=== PATIENT | male | born 1950 | race Caucasian/White ===

== ENCOUNTER 2018-12-18 14:03 | Inpatient (IN) ==
--- NOTE | 2018-12-18 14:22 | CT Scan Report ---
CT head/brain wo con CT DOSE: 638.56 mGycm HISTORY: Mental status change Confused, speech difficulty TECHNIQUE: Multiaxial CT images of the head were performed without the use of intravenous contrast. A dose lowering technique was utilized adhering to the principles of ALARA. Comparison: None. Findings: Ancef polypoid change left maxillary sinus. Sinuses are otherwise clear. Findings of an acute to subacute infarct left superior temporal lobe medially posterior to the superi or sylvian fissure. This measures 2.5 x 2.8 cm. The calvarium and skull base are intact. The ventricl es and sulci are within normal limits. There is no mass, hematoma, midline shift,. No evidence for ac fabiano intracranial hemorrhage. Impression: 1. Acute/subacute infarct left superior temporal parietal lobe 2. No acute intracranial hemorrhage. 3. Expansile polypoid change superior left maxillary sinus. The above report was generated using voice recognition software. It may contain grammatical, syntax or spelling errors. Electronically signed by: Jaspreet Richardson M.D. 12/18/2018 2:20 PM
--- NOTE | 2018-12-18 14:32 | XRay Report ---
XR chest 1V portable CLINICAL HISTORY: speech difficulty COMPARISON STUDY: No previous studies for comparison. FINDINGS: The bones soft tissues and hemidiaphragms are normal. The cardiomediastinal silhouette is n ormal. The lungs are clear. The pulmonary vasculature is normal. IMPRESSION: Negative chest. The above report was generated using voice recognition software. It may contain grammatical, syntax or spelling errors. Electronically signed by: Jaspreet Richardson M.D. 12/18/2018 2:30 PM
[2018-12-18 14:42] LABS: iSTAT Creatinine 1.3 mg/dl (0.6-1.3); iSTAT Ionized Calcium 1.05 mmol/l (1.12-1.32); iSTAT Potassium 4.5 mEq/L (3.3-5.0)
[2018-12-18 14:50] LABS: Hematocrit (blood only) 42.1 % (42-52); Hemoglobin 15.1 g/dL (14.0-18.0); Mean Corpuscular Hgb Conc 35.9 g/dL (32-36); Mean Corpuscular Volume 86.4 fL (80-100); Mean Platelet Volume 10.1 fL (7.4-10.4); Platelet Count 283 K/uL (130-400); RDW Coefficient of Variation 12.7 % (11.5-14.5); RDW Standard Deviation 40.7 fL (36.4-46.3); Red Blood Count 4.87 M/uL (4.7-6.1); White Blood Count 10.13 K/uL (4.8-10.8)
[2018-12-18 14:52] LABS: Partial Thromboplastin Ratio 0.9
[2018-12-18] MEDS ORDERED: IOVERSOL 100ml IV PRN (14:54)
--- NOTE | 2018-12-18 15:04 | CT Scan Report ---
CT angio neck with con HISTORY: Stroke code stroke TECHNIQUE: Multiaxial CT angiography of the neck was performed IV contrast: None. All measurem ents were calculated based on NASCET criteria. Maximum intensity projection images were also obtaine d. A dose lowering technique was utilized adhering to the principles of ALARA. COMPARISON STUDY: None. FINDINGS: The aortic arch and proximal great vessels are widely patent. The right carotid system debra ws moderate plaque dimension of the carotid bifurcation but no major stenosis. There is plaque formation at the left carotid bifurcation with evidence for 95% plus stenosis left in ternal as well as left external carotid arteries. More distal aspect of the vessels appear unremarkab le. Vertebral basilar system is unremarkable. IMPRESSION: 1. 95% plus stenosis/critical stenosis of the left internal and left external carotid arteries. 2. No significant stenosis of the right carotid system or vertebral basilar system. The above report was generated using voice recognition software. It may contain grammatical, syntax or spelling errors. Electronically signed by: Jaspreet Richardson M.D. 12/18/2018 3:02 PM
--- NOTE | 2018-12-18 15:05 | CT Scan Report ---
CTA ANGIOGRAPHY OF THE HEAD CLINICAL HISTORY: Stroke alert. COMPARISON STUDY: Head CT performed earlier today. TECHNIQUE: Helical axial images of the head were obtained following uneventful intravenous administr ation of 120 cc of Optiray 320. Automated exposure control was utilized for the study. A dose lower ing technique was utilized adhering to the principles of ALARA. FINDINGS: No acute intracranial hemorrhage, midline shift or mass effect is noted. Note is made of a 3 cm hypodensity with loss of luna-white differentiation within the left frontoparietal region. Ventr icular system is normal. The basilar cisterns are patent. There are no extra-axial collections. Visua lized portions of the left maxillary sinus are opacified with wall thickening. The bilateral M1, M2, A1 and A2 segments are patent. There is mild plaque. No severe stenoses are identified. No abrupt cut off is identified. Posterior circulation is also intact. IMPRESSION: 1. 3 cm hypodensity with loss of luna-white differentiation within the left frontoparietal region whi ch suggests an acute to subacute infarct. No hemorrhage. No mass effect. 2. Mild atherosclerotic plaque within the intracranial circulation. No severe stenosis or abrupt vess el cut off. No intracranial aneurysm. Electronically signed by: Zan Garcia M.D. 12/18/2018 3:04 PM
[2018-12-18 15:10] LABS: Albumin Globulin Ratio 0.8 (0.9-2); Albumin Level 3.9 gm/dl (3.4-5.0); BUN Creatinine Ratio 17.9 (10-20); Bilirubin,Total 0.6 mg/dl (0.2-1); Calcium 9.5 mg/dl (8.5-10.1); Creatinine Clr Calc Pharmacy 42.8 ml/min; Est GFR (African American) 53.9; Est GFR (Non-African American) 46.5; Globulin 4.6 gm/dl (2.5-4.0); Magnesium 2.1 mg/dl (1.8-2.4); Potassium 4.3 mmol/L (3.5-5.1); Total Protein 8.5 gm/dl (6.4-8.2)
[2018-12-18] MEDS ORDERED: CLOPIDOGREL BISULFATE 300 MG TAB PO STA (15:17)
[2018-12-18] MEDS ORDERED: ASPIRIN CHEW 324 MG PO STA (15:17)
[2018-12-18 15:27] LABS: Beta-Hydroxybutyrate 21.91 mg/dl (0.2-2.81)
--- NOTE | 2018-12-18 16:46 | History & Physical Report ---
Date of Service December 18, 2018 Assessment & Plan (1) CVA (cerebral vascular accident): (2) Carotid stenosis: -Admit to telemetry -Patient presenting from home with reports of expressive aphasia -In the ED, head CTA showing acute/subacute left frontoparietal infarction -Neck CTA showing 95% stenosis of the left internal and external carotid arteries -TPA not indicated due to unknown last well time (patient woke up with symptoms) -Patient received full dose aspirin and clopidogrel 300 mg in the ED, will continue with aspirin 81 mg and clopidogrel 75 mg daily -Brain MRI -Resting echo -Vascular surgery consult re: carotid stenosis -Lipid panel with a.m. labs -Patient also found to be newly diagnosed diabetic (3) Newly diagnosed diabetes: -Glucose on arrival 378 -No reported prior history of diabetes -will place patient on insulin drip to determine needs going forward -Check Hgb A1c (4) Tachycardia: -Possible physiologic response to acute CVA -? Due to dehydration; will give 1 L IVF bolus and reevaluate -Would like to try to avoid giving medications to lower heart rate to allow for permissive hypertension in the setting of acute CVA (5) Abnormal renal function: -Creatinine noted to be 1.5, unknown baseline -Hydrate, follow renal functions (6) DVT prophylaxis: -SCDs, ambulate History of Present Illness Chief Complaint: Difficulty speaking Primary Care Provider: NO PCP 68-year-old male who presents the ED with difficulty speaking. Patient has not been seen by a physician in several years. Patient reports that he and his were at a [place] in [place] yesterday and did not arrive home until 5:00 this morning. Patient woke up around noon and at that time, he was noted to have difficulty speaking and some mild confusion. is the bedside who provides history. She reports that he knew what he wanted to say however was unable to get the words out. Patient was then brought to the ED for further evaluation. There is no associated unilateral numbness or tingling, slurred speech, facial droop. Patient denies headache and blurred vision. Over the past several months, patient has had episodes where he " collapses". Reports this was not due to loss of consciousness however his legs are simply give out from under him. Patient denies lightheadedness, dizziness, diaphoresis, syncopal events. He denies abdominal pain, nausea, vomiting, diarrhea. No other recent illnesses, fevers, chills. He denies any urinary symptoms. Patient reports increased thirst and urination however reports this is been going on for " some time". Stroke alert was called when patient arrived to the ED however he was not felt to be a candidate for TPA secondary to timing. Head CTA shows an acute/subacute infarct in the left frontoparietal region. Neck CTA shows 95% stenosis within the left internal and external carotid arteries. Patient was given a full dose aspirin and clopidogrel 300 mg as per recommendations from [place] stroke alert. Labs also show blood sugar of 378 (no history of diabetes). Allergies Allergy/AdvReac Type Severity Reaction Status Date / Time No Known Allergies Allergy Verified 12/18/18 14:58 Home Medications Home Medications Medication Instructions Recorded Confirmed Type aspirin 325 mg PO DAILY 12/18/18 12/18/18 History multivitamin 1 tab PO DAILY 12/18/18 12/18/18 History naproxen sodium 220 - 440 mg PO DIRECTED PRN 12/18/18 12/18/18 History Past Med/Surg History Medical History Wrist fracture (Chronic) s/p repair Family History Father Abdominal aortic aneurysm Mother Stroke Fatal at age 88 Brother Diabetes Social History Preferred Language: Romanian Communication Ability: Effective Print[employer]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 Beliefs That Will Affect Care: None Current Living Situation: Spouse Other Information That Helps Us Care for You: No Feels Safe at Home: Yes Safety Concerns: Feels Safe At This Time Smoking Status: Never smoker Do You Dip or Chew Tobacco: No Second Hand Exposure: No Tobacco Cessation Education Requested by Patient: No Hx Alcohol Use: Yes Hx Substance Use: No Review of Systems Review of Systems: ROS per HPI, all other systems reviewed and negative Physical Exam Constitutional: WD/WN, vitals as above Eyes: PERRL, conjunctivae normal, anicteric sclerae ENMT: Ears: no external ear abnormality Nose: no external nose abnormality Mouth: + edentulous Respiratory: normal respiratory effort, lungs clear to auscultation Cardiovascular: Rate/Rhythm: regular rhythm and + tachycardic Vessels: + carotid bruit (Left) and normal peripheral pulses Extremities: no edema Gastrointestinal (Abdomen): normal bowel sounds, soft, nontender, no hepatosplenomegaly Musculoskeletal: no cyanosis or clubbing, extremities motor strength 5/5 Skin: no rashes, warm and dry Neurologic: moves all extremities and awake; no focal motor deficits Speech / Cognition: + expressive aphasia Motor/Sensory: no pronator drift Cranial Nerves: PERRL, normal accommodation, EOM intact bilaterally and normal facial strength Coordination: normal [id number] test and normal [id number] test Psychiatric: A+Ox3, euthymic affect Results & Data Vital Signs (Past 12 Hours) Vital Signs Temp Pulse Resp BP Pulse Ox 12/18/18 16:15 110 H 16 97 12/18/18 16:01 117 H 18 148/88 H 96 12/18/18 16:00 119 H 22 98 12/18/18 15:47 120 H 20 98 12/18/18 15:46 116 H 29 H 153/109 H 94 12/18/18 15:45 109 H 18 98 12/18/18 15:31 108 H 14 142/106 H 97 12/18/18 15:30 108 H 17 97 12/18/18 15:17 110 H 17 97 12/18/18 15:16 109 H 16 161/104 H 99 12/18/18 15:15 109 H 15 99 12/18/18 15:01 110 H 20 170/91 H 98 12/18/18 15:00 112 H 21 98 12/18/18 14:54 115 H 21 170/95 H 99 12/18/18 14:52 116 H 16 12/18/18 14:32 121 H 22 97 12/18/18 14:31 122 H 19 201/115 H 98 12/18/18 14:28 122 H 21 190/115 H 98 12/18/18 14:23 120 H 18 199/115 H 97 12/18/18 14:22 36.9 C 12/18/18 14:21 124 H 20 212/120 H 98 12/18/18 14:11 123 H 98 12/18/18 14:07 36.9 C 119 H 17 138/81 98 Laboratory Results Laboratory Last Values WBC 10.13 K/uL (4.8-10.8) 12/18/18 14:18 RBC 4.87 M/uL (4.7-6.1) 12/18/18 14:18 Hgb 15.1 g/dL (14.0-18.0) 12/18/18 14:18 POC Hgb 16.0 g/dl (14.0-18.0) 12/18/18 14:28 Hct 42.1 % (42-52) 12/18/18 14:18 POC Hct 47 % (42-52) 12/18/18 14:28 MCV 86.4 fL (80-100) 12/18/18 14:18 MCH 31.0 pg (25-34) 12/18/18 14:18 MCHC 35.9 g/dL (32-36) 12/18/18 14:18 RDW Std Deviation 40.7 fL (36.4-46.3) 12/18/18 14:18 RDW Coeff of Nazanin 12.7 % (11.5-14.5) 12/18/18 14:18 Plt Count 283 K/uL (130-400) 12/18/18 14:18 MPV 10.1 fL (7.4-10.4) 12/18/18 14:18 PT 10.0 Seconds (9.0-12.0) 12/18/18 14:18 INR 1.0 (0.9-1.1) 12/18/18 14:18 APTT 24.0 Seconds (21.0-31.0) 12/18/18 14:18 PTT Ratio 0.9 12/18/18 14:18 POC Sodium 134 mEq/L (135-144) L 12/18/18 14:28 Sodium 132 mmol/L (136-145) L 12/18/18 14:18 POC Potassium 4.5 mEq/L (3.3-5.0) 12/18/18 14:28 Potassium 4.3 mmol/L (3.5-5.1) 12/18/18 14:18 POC Chloride 97 mEq/L (101-112) L 12/18/18 14:28 Chloride 98 mmol/L (98-107) 12/18/18 14:18 Carbon Dioxide 23 mmol/L (21-32) 12/18/18 14:18 POC Total CO2 25 mEq/l (24-31) 12/18/18 14:28 Anion Gap 11.0 (3-11) 12/18/18 14:18 POC Anion Gap 18.0 mmol/L (16-25) 12/18/18 14:28 POC BUN 29 mg/dl (7-18) H 12/18/18 14:28 BUN 27 mg/dl (7-18) H 12/18/18 14:18 Creatinine 1.50 mg/dl (0.6-1.4) H 12/18/18 14:18 POC Creatinine 1.3 mg/dl (0.6-1.3) 12/18/18 14:28 Est Cr Clr Drug Dosing 42.8 ml/min 12/18/18 14:18 Est GFR ( Amer) 53.9 12/18/18 14:18 Est GFR (Non-Af Amer) 46.5 12/18/18 14:18 BUN/Creatinine Ratio 17.9 (10-20) 12/18/18 14:18 Glucose 378 mg/dl (70-99) H* 12/18/18 14:18 POC Glucose 360 (70-99) H* 12/18/18 17:14 POC Glucose (other) 396 mg/dl (70-99) H* 12/18/18 14:28 Calcium 9.5 mg/dl (8.5-10.1) 12/18/18 14:18 POC Ioniz Calcium Jaquelin 1.05 mmol/l (1.12-1.32) L 12/18/18 14:28 Magnesium 2.1 mg/dl (1.8-2.4) 12/18/18 14:18 Total Bilirubin 0.6 mg/dl (0.2-1) 12/18/18 14:18 AST 12 U/L (15-37) L 12/18/18 14:18 ALT 23 U/L (12-78) 12/18/18 14:18 Alkaline Phosphatase 127 U/L (45-117) H 12/18/18 14:18 Total Protein 8.5 gm/dl (6.4-8.2) H 12/18/18 14:18 Albumin 3.9 gm/dl (3.4-5.0) 12/18/18 14:18 Globulin 4.6 gm/dl (2.5-4.0) H 12/18/18 14:18 Albumin/Globulin Ratio 0.8 (0.9-2) L 12/18/18 14:18 Beta-Hydroxybutyric Acd 21.91 mg/dl (0.2-2.81) H 12/18/18 14:18 Diagnostic Findings CXR IMPRESSION: Negative chest. Head CT Impression: 1. Acute/subacute infarct left superior temporal parietal lobe 2. No acute intracranial hemorrhage. 3. Expansile polypoid change superior left maxillary sinus. HEAD CTA IMPRESSION: 1. 3 cm hypodensity with loss of luna-white differentiation within the left frontoparietal region which suggests an acute to subacute infarct. No hemorrhage. No mass effect. 2. Mild atherosclerotic plaque within the intracranial circulation. No severe stenosis or abrupt vessel cut off. No intracranial aneurysm. NECK CTA IMPRESSION: 1. 95% plus stenosis/critical stenosis of the left internal and left external carotid arteries. 2. No significant stenosis of the right carotid system or vertebral basilar sys tem. Code Status & VTE Plan VTE Prophylaxis Plan VTE Prophylaxis will be ordered: Yes Supervising Physician Co-Signing Physician Notes Care coordinated with Sheryl MCNEAL. Agree with above note. Patient seen and examined. Please refer to her notes for full details. Vital signs reviewed. Physical exam: General exam: Alert and awake. Not in acute distress.Having expressive aphasia CVS: S1 and S2 heard, regular rate and rhythm, no murmurs. RS: Clear to auscultation, no wheezing or crackles. ABD: Soft, bowel sounds present, nontender, no distention. DRILLING FIELD SPECIALIST: expressive aphasia, no weakness, no pronator drift, can do finger nose test. EXT: No edema, no erythema. Labs: Reviewed. Assessment and plan: 68M presented with acute CVA and new onset DM. Acute CVA Expressive aphasia left frontoparietal CVA on imaging studies tpa not given as exact time not known loaded with aspirin and plavix full stroke workup monitor in [facility] speech evaluation Left Carotid stenosis >95% stenosis on left internal and external carotid artery d/w vascular surgery at [facility] - to do surgery in 2 week window and to wait at least 2-3 days for now in acute setting vascular surgery consulted New diabetes not in dka started on insulin drip follow hba1c levels Tachycardia dehydration? giving iv fluids close nonitor HTN allow permissive HTN Other diagnosis and plan of care as per []. Nehemias dozier MD.
[2018-12-18] MEDS ORDERED: PHARMACIST DISCHARGE MED REC CONSULT PRN (16:51)
[2018-12-18] MEDS ORDERED: ACETAMINOPHEN 325 MG TAB PO PRN (16:51)
[2018-12-18] MEDS ORDERED: MODERATE STRESS LEVEL ONE (16:51)
[2018-12-18] MEDS ORDERED: INSULIN PROTOCOL GOAL RANGE SCH (17:00)
[2018-12-18] MEDS ORDERED: SODIUM CHLORIDE 0.9% 1000ML 1,000 ML IV ONE (17:02)
--- NOTE | 2018-12-18 17:12 | Emergency Department Note ---
Entered by Laura Hair acting as a scribe for History of Present Illness General Chief complaint: Neuro Symptoms/Deficit Stated complaint: DIFFICULTY SPEAKING,CONFUSED Time Seen by Provider: 12/18/18 14:13 Source: patient Limitations: no limitations History of Present Illness Onset (ago): hour(s) 2 Location: head Pain Consistency: + constant Quality: + other (confusion, difficulty speaking, and difficulty walking) Associated symptoms: + denies other symptoms (hematuria or hematochezia) The patient is a 68 year old female who presents to the ED complaining of constant confusion, difficulty speaking, and difficulty walking since this 1200 today, about 2 hours ago. His , at bedside, states that he's been "collapsing" recently. She reports that he did not fall last night. The patient's states that his last well known was at 0500 this morning when he went to bed, noting that [place] last [place]. She reports that the patient went to bed at 0500 this morning, and he woke up at 1200 with the symptoms. The patient's denies any hematuria or hematochezia. The patient's denies any history of a stroke, brain surgery, or use of blood thinners. Home Medications Home Medications Medication Instructions Recorded Confirmed Type aspirin 325 mg PO DAILY 12/18/18 12/18/18 History multivitamin 1 tab PO DAILY 12/18/18 12/18/18 History naproxen sodium 220 - 440 mg PO DIRECTED PRN 12/18/18 12/18/18 History Allergies Allergy/AdvReac Type Severity Reaction Status Date / Time No Known Allergies Allergy Verified 12/18/18 14:58 Past Med/Surg History Medical History Wrist fracture (Chronic) s/p repair No history of stroke Family History Other Family history non-contributory Social History Preferred Language: Mozambican Communication Ability: Effective Legal Service Specialist Required: No Beliefs That Will Affect Care: None Current Living Situation: Spouse Other Information That Helps Us Care for You: No Feels Safe at Home: Yes Safety Concerns: Feels Safe At This Time Smoking Status: Never smoker Do You Dip or Chew Tobacco: No Second Hand Exposure: No Tobacco Cessation Education Requested by Patient: No Hx Alcohol Use: No Hx Substance Use: No Review of Systems See HPI for pertinent positives & negatives. and A total of 10 systems reviewed and were otherwise negative Physical Exam Vital Signs Vital Signs - 24 hr 12/18/18 14:07 12/18/18 14:11 12/18/18 14:21 Temperature 36.9 C Temperature Source Oral Sepsis Recent Fever Within 48 Hours No Sepsis New/Unexplained Change in Mental Status No Sepsis Action Taken by Nursing No Action Required Pulse Rate 119 H 123 H 124 H Pulse Rate [Right Radial] Pulse Rate from SpO2 Sensor 124 H Pulse Strength [Right Radial] Respiratory Rate 17 20 Respiratory Effort / Characteristics Respiratory Depth Respiratory Pattern Blood Pressure 138/81 212/120 H Blood Pressure [Left Arm] Blood Pressure Mean 100 150 Blood Pressure Mean [Left Arm] Blood Pressure Position Sitting Blood Pressure Position [Left Arm] Pulse Oximetry 98 98 98 Oxygen Delivery Method Room Air Room Air 12/18/18 14:22 12/18/18 14:23 12/18/18 14:28 Temperature 36.9 C Temperature Source Oral Sepsis Recent Fever Within 48 Hours Sepsis New/Unexplained Change in Mental Status Sepsis Action Taken by Nursing Pulse Rate 120 H 122 H Pulse Rate [Right Radial] Pulse Rate from SpO2 Sensor 120 H 122 H Pulse Strength [Right Radial] Respiratory Rate 18 21 Respiratory Effort / Characteristics Respiratory Depth Respiratory Pattern Blood Pressure 199/115 H 190/115 H Blood Pressure [Left Arm] Blood Pressure Mean 143 140 Blood Pressure Mean [Left Arm] Blood Pressure Position Blood Pressure Position [Left Arm] Pulse Oximetry 97 98 Oxygen Delivery Method 12/18/18 14:31 12/18/18 14:32 12/18/18 14:52 Temperature Temperature Source Sepsis Recent Fever Within 48 Hours Sepsis New/Unexplained Change in Mental Status Sepsis Action Taken by Nursing Pulse Rate 122 H 121 H 116 H Pulse Rate [Right Radial] Pulse Rate from SpO2 Sensor 123 H 122 H Pulse Strength [Right Radial] Respiratory Rate 19 22 16 Respiratory Effort / Characteristics Respiratory Depth Respiratory Pattern Blood Pressure 201/115 H Blood Pressure [Left Arm] Blood Pressure Mean 143 Blood Pressure Mean [Left Arm] Blood Pressure Position Blood Pressure Position [Left Arm] Pulse Oximetry 98 97 Oxygen Delivery Method 12/18/18 14:54 12/18/18 15:00 12/18/18 15:01 Temperature Temperature Source Sepsis Recent Fever Within 48 Hours Sepsis New/Unexplained Change in Mental Status Sepsis Action Taken by Nursing Pulse Rate 115 H 112 H 110 H Pulse Rate [Right Radial] Pulse Rate from SpO2 Sensor 116 H 112 H 109 H Pulse Strength [Right Radial] Respiratory Rate 21 21 20 Respiratory Effort / Characteristics Respiratory Depth Respiratory Pattern Blood Pressure 170/95 H 170/91 H Blood Pressure [Left Arm] Blood Pressure Mean 120 117 Blood Pressure Mean [Left Arm] Blood Pressure Position Blood Pressure Position [Left Arm] Pulse Oximetry 99 98 98 Oxygen Delivery Method 12/18/18 15:15 12/18/18 15:16 12/18/18 15:17 Temperature Temperature Source Sepsis Recent Fever Within 48 Hours Sepsis New/Unexplained Change in Mental Status Sepsis Action Taken by Nursing Pulse Rate 109 H 109 H 110 H Pulse Rate [Right Radial] Pulse Rate from SpO2 Sensor 107 H 108 H 110 H Pulse Strength [Right Radial] Respiratory Rate 15 16 17 Respiratory Effort / Characteristics Respiratory Depth Respiratory Pattern Blood Pressure 161/104 H Blood Pressure [Left Arm] Blood Pressure Mean 123 Blood Pressure Mean [Left Arm] Blood Pressure Position Blood Pressure Position [Left Arm] Pulse Oximetry 99 99 97 Oxygen Delivery Method 12/18/18 15:30 12/18/18 15:31 12/18/18 15:45 Temperature Temperature Source Sepsis Recent Fever Within 48 Hours Sepsis New/Unexplained Change in Mental Status Sepsis Action Taken by Nursing Pulse Rate 108 H 108 H 109 H Pulse Rate [Right Radial] Pulse Rate from SpO2 Sensor 109 H 109 H 109 H Pulse Strength [Right Radial] Respiratory Rate 17 14 18 Respiratory Effort / Characteristics Respiratory Depth Respiratory Pattern Blood Pressure 142/106 H Blood Pressure [Left Arm] Blood Pressure Mean 118 Blood Pressure Mean [Left Arm] Blood Pressure Position Blood Pressure Position [Left Arm] Pulse Oximetry 97 97 98 Oxygen Delivery Method 12/18/18 15:46 12/18/18 15:47 12/18/18 16:00 Temperature Temperature Source Sepsis Recent Fever Within 48 Hours Sepsis New/Unexplained Change in Mental Status Sepsis Action Taken by Nursing Pulse Rate 116 H 120 H 119 H Pulse Rate [Right Radial] Pulse Rate from SpO2 Sensor 114 H 119 H 119 H Pulse Strength [Right Radial] Respiratory Rate 29 H 20 22 Respiratory Effort / Characteristics Respiratory Depth Respiratory Pattern Blood Pressure 153/109 H Blood Pressure [Left Arm] Blood Pressure Mean 123 Blood Pressure Mean [Left Arm] Blood Pressure Position Blood Pressure Position [Left Arm] Pulse Oximetry 94 98 98 Oxygen Delivery Method 12/18/18 16:01 12/18/18 16:15 12/18/18 16:30 Temperature Temperature Source Sepsis Recent Fever Within 48 Hours Sepsis New/Unexplained Change in Mental Status Sepsis Action Taken by Nursing Pulse Rate 117 H 110 H Pulse Rate [Right Radial] Pulse Rate from SpO2 Sensor 118 H 111 H 121 H Pulse Strength [Right Radial] Respiratory Rate 18 16 21 Respiratory Effort / Characteristics Respiratory Depth Respiratory Pattern Blood Pressure 148/88 H Blood Pressure [Left Arm] Blood Pressure Mean 108 Blood Pressure Mean [Left Arm] Blood Pressure Position Blood Pressure Position [Left Arm] Pulse Oximetry 96 97 96 Oxygen Delivery Method 12/18/18 16:31 12/18/18 16:45 12/18/18 16:53 Temperature 37.3 C Temperature Source Oral Sepsis Recent Fever Within 48 Hours Sepsis New/Unexplained Change in Mental Status Sepsis Action Taken by Nursing Pulse Rate 115 H 134 H Pulse Rate [Right Radial] 128 H Pulse Rate from SpO2 Sensor 116 H Pulse Strength [Right Radial] Normal Respiratory Rate 15 16 Respiratory Effort / Characteristics Non-Labored Spontaneous Respiratory Depth Normal Respiratory Pattern Regular Blood Pressure 156/94 H Blood Pressure [Left Arm] 151/99 H Blood Pressure Mean 114 Blood Pressure Mean [Left Arm] 116 Blood Pressure Position Blood Pressure Position [Left Arm] Lying Pulse Oximetry 97 97 Oxygen Delivery Method Room Air GENERAL: He is oriented to person, place, and time. He appears well-developed and well-nourished. He does not appear distressed. HENT: Exam performed. - Head: Normocephalic and atraumatic. - Right Ear: External ear normal. No mastoid tenderness. - Left Ear: External ear normal. No mastoid tenderness. - Mouth/Throat: The oropharynx is clear and moist. No trismus in the jaw. No dental abscesses or uvula swelling. No oropharyngeal exudate or tonsillar abscesses. EYES: Conjunctivae and EOM are normal. Pupils are equal, round, and reactive to light. Right eye exhibits no discharge. Left eye exhibits no discharge. No scleral icterus. NECK: Normal range of motion. Neck supple. No JVD present. No spinous process tenderness present. No carotid bruit present. No rigidity. No tracheal deviation and normal range of motion present. No Brudzinski's sign and no Kernig's sign noted. CV: Tachycardic rate, regular rhythm, normal heart sounds and intact distal pulses. There is no peripheral edema. Palpable radial pulses bue. PULM/CHEST: Effort normal and breath sounds normal. No respiratory distress. No stridor. He has no wheezes. He has no rales. - Chest Wall: He exhibits no tenderness. ABD: The abdomen is soft. Bowel sounds are normal. He has no distension. No mass is present. There is no tenderness. There is no rebound, no guarding, no Lobato's sign and no tenderness at McBurney's point. Rovsig negative. MUSC/SKEL: Normal range of motion. There is no peripheral edema, tenderness or deformity. LYMPH: No cervical adenopathy. NEURO: He is a 2 on the NIH stroke scale. 1-sensory, 1-expressive aphasia. SKIN: Skin is warm and dry. He is not diaphoretic. PSYCH: He has a normal mood and affect. Behavior is normal. Judgment and thought content normal. Course 1415: Past medical records reviewed. The patient was evaluated in room B01 after a code stroke was called from triage. Patient was taken immediately to CT from triage. A complete history and physical exam was performed. 1422: Vital signs stable. Patient's CT of the head shows an acute infarct of the left superior temporal parietal lobe. The patient is not a TPA candidate as the onset of his symptoms are not clearly defined as he woke up with the symptoms at noon. His last known normal was at 5 AM, and thus the patient is not a TPA candidate. I spoke with Dr. Mena, [facility] telestroke, about the patients case. She asked for a CTA of the head and neck. 1519: The patients repeat blood pressure is 161/84 without intervention. CTA of the head showed no significant stenosis. CTA of the neck showed 95% internal carotid artery stenosis of the left side. I spoke with Dr. Okeefe, and she said that the patient does not need to be transferred. She stated that he could be seen by vascular surgery here. She recommended Aspirin and Plavix. The patie nt states that he does not have a PCP. [facility] I spoke with FREDIS King, about the patient case. The patient will be further evaluated by Dr. López, [facility] hospitalist. Consultations Consultation #1: I spoke with Dr. Mena, [facility] neurology, about the patients case. She asked for a CTA of the head and neck. Time: 14:22 Consultation #2: I spoke with FREDIS King, about the patient case. The patient will be further evaluated by Dr. López, [facility] hospitalist. Time: 15:22 Administered Medications Discontinued Medications Aspirin (Aspirin) 324 mg PO NOW STA Stop: 12/18/18 15:18 Last Admin: 12/18/18 15:22 Dose: 324 mg Documented by: [id number] Clopidogrel Bisulfate (Plavix) 300 mg PO NOW STA Stop: 12/18/18 15:18 Last Admin: 12/18/18 15:22 Dose: 300 mg Documented by: [id number] Ioversol (Optiray 320 100ml) 120 ml IV ONCE PRN PRN Reason: Interaction Checking Stop: 12/22/18 14:53 Last Admin: 12/18/18 14:55 Dose: 120 ml Documented by: [id number] Medical Decision Making Medical Records Attestation: I reviewed the patient's medical records. Home Medications Current Medication List: was personally reviewed by me Laboratory Data Attestation: I reviewed the patient's lab results. Result diagrams: 12/18/18 14:18 12/18/18 14:18 Lab Results 12/18/18 12/18/18 12/18/18 Range/Units 14:18 14:18 14:18 WBC 10.13 (4.8-10.8) K/uL RBC 4.87 (4.7-6.1) M/uL Hgb 15.1 (14.0-18.0) g/dL POC Hgb (14.0-18.0) g/dl Hct 42.1 (42-52) % POC Hct (42-52) % MCV 86.4 (80-100) fL MCH 31.0 (25-34) pg MCHC 35.9 (32-36) g/dL RDW Std Deviation 40.7 (36.4-46.3) fL RDW Coeff of Nazainn 12.7 (11.5-14.5) % Plt Count 283 (130-400) K/uL MPV 10.1 (7.4-10.4) fL PT 10.0 (9.0-12.0) Seconds INR 1.0 (0.9-1.1) APTT 24.0 (21.0-31.0) Seconds PTT Ratio 0.9 POC Sodium (135-144) mEq/L Sodium 132 L (136-145) mmol/L POC Potassium (3.3-5.0) mEq/L Potassium 4.3 (3.5-5.1) mmol/L POC Chloride (101-112) mEq/L Chloride 98 (98-107) mmol/L Carbon Dioxide 23 (21-32) mmol/L POC Total CO2 (24-31) mEq/l Anion Gap 11.0 (3-11) POC Anion Gap (16-25) mmol/L POC BUN (7-18) mg/dl BUN 27 H (7-18) mg/dl Creatinine 1.50 H (0.6-1.4) mg/dl POC Creatinine (0.6-1.3) mg/dl Est Cr Clr Drug Dosing 42.8 ml/min Est GFR ( Amer) 53.9 Est GFR (Non-Af Amer) 46.5 BUN/Creatinine Ratio 17.9 (10-20) Glucose 378 H* (70-99) mg/dl POC Glucose (70-99) POC Glucose (other) (70-99) mg/dl Calcium 9.5 (8.5-10.1) mg/dl POC Ioniz Calcium Jqauelin (1.12-1.32) mmol/l Magnesium 2.1 (1.8-2.4) mg/dl Total Bilirubin 0.6 (0.2-1) mg/dl AST 12 L (15-37) U/L ALT 23 (12-78) U/L Alkaline Phosphatase 127 H (45-117) U/L Total Protein 8.5 H (6.4-8.2) gm/dl Albumin 3.9 (3.4-5.0) gm/dl Globulin 4.6 H (2.5-4.0) gm/dl Albumin/Globulin Ratio 0.8 L (0.9-2) Beta-Hydroxybutyric Acd 21.91 H (0.2-2.81) mg/dl 12/18/18 12/18/18 Range/Units 14:22 14:28 WBC (4.8-10.8) K/uL RBC (4.7-6.1) M/uL Hgb (14.0-18.0) g/dL POC Hgb 16.0 (14.0-18.0) g/dl Hct (42-52) % POC Hct 47 (42-52) % MCV (80-100) fL MCH (25-34) pg MCHC (32-36) g/dL RDW Std Deviation (36.4-46.3) fL RDW Coeff of Nazanin (11.5-14.5) % Plt Count (130-400) K/uL MPV (7.4-10.4) fL PT (9.0-12.0) Seconds INR (0.9-1.1) APTT (21.0-31.0) Seconds PTT Ratio POC Sodium 134 L (135-144) mEq/L Sodium (136-145) mmol/L POC Potassium 4.5 (3.3-5.0) mEq/L Potassium (3.5-5.1) mmol/L POC Chloride 97 L (101-112) mEq/L Chloride (98-107) mmol/L Carbon Dioxide (21-32) mmol/L POC Total CO2 25 (24-31) mEq/l Anion Gap (3-11) POC Anion Gap 18.0 (16-25) mmol/L POC BUN 29 H (7-18) mg/dl BUN (7-18) mg/dl Creatinine (0.6-1.4) mg/dl POC Creatinine 1.3 (0.6-1.3) mg/dl Est Cr Clr Drug Dosing ml/min Est GFR ( Amer) Est GFR (Non-Af Amer) BUN/Creatinine Ratio (10-20) Glucose (70-99) mg/dl POC Glucose 403 H* (70-99) POC Glucose (other) 396 H* (70-99) mg/dl Calcium (8.5-10.1) mg/dl POC Ioniz Calcium Jaquelin 1.05 L (1.12-1.32) mmol/l Magnesium (1.8-2.4) mg/dl Total Bilirubin (0.2-1) mg/dl AST (15-37) U/L ALT (12-78) U/L Alkaline Phosphatase (45-117) U/L Total Protein (6.4-8.2) gm/dl Albumin (3.4-5.0) gm/dl Globulin (2.5-4.0) gm/dl Albumin/Globulin Ratio (0.9-2) Beta-Hydroxybutyric Acd (0.2-2.81) mg/dl Imaging Data Radiologist's Impression: Radiology results as stated below per my review and the radiologist's interpretation: CT head/brain wo con CT DOSE: 638.56 mGycm HISTORY: Mental status change Confused, speech difficulty TECHNIQUE: Multiaxial CT images of the head were performed without the use of intravenous contrast. A dose lowering technique was utilized adhering to the principles of ALARA. Comparison: None. Findings: Ancef polypoid change left maxillary sinus. Sinuses are otherwise clear. Findings of an acute to subacute infarct left superior temporal lobe medially posterior to the superior sylvian fissure. This measures 2.5 x 2.8 cm. The calvarium and skull base are intact. The ventricles and sulci are within normal limits. There is no mass, hematoma, midline shift,. No evidence for acute intracranial hemorrhage. Impression: 1. Acute/subacute infarct left superior temporal parietal lobe 2. No acute intracranial hemorrhage. 3. Expansile polypoid change superior left maxillary sinus. The above report was generated using voice recognition software. It may contain grammatical, syntax or spelling errors. Electronically signed by: Jaspreet Richardson M.D. 12/18/2018 2:20 PM XR chest 1V portable CLINICAL HISTORY: speech difficulty COMPARISON STUDY: No previous studies for comparison. FINDINGS: The bones soft tissues and hemidiaphragms are normal. The cardiomediastinal silhouette is normal. The lungs are clear. The pulmonary vasculature is normal. IMPRESSION: Negative chest. The above report was generated using voice recognition software. It may contain grammatical, syntax or spelling errors. Electronically signed by: Jaspreet Richardson M.D. 12/18/2018 2:30 PM CTA ANGIOGRAPHY OF THE HEAD CLINICAL HISTORY: Stroke alert. COMPARISON STUDY: Head CT performed earlier today. TECHNIQUE: Helical axial images of the head were obtained following uneventful intravenous administration of 120 cc of Optiray 320. Automated exposure control was utilized for the study. A dose lowering technique was utilized adhering to the principles of ALARA. FINDINGS: No acute intracranial hemorrhage, midline shift or mass effect is noted. Note is made of a 3 cm hypodensity with loss of luna-white differentiation within the left frontoparietal region. Ventricular system is normal. The basilar cisterns are patent. There are no extra-axial collections. Visualized portions of the left maxillary sinus are opacified with wall thickening. The bilateral M1, M2, A1 and A2 segments are patent. There is mild plaque. No severe stenoses are identified. No abrupt cut off is identified. Posterior circulation is also intact. IMPRESSION: 1. 3 cm hypodensity with loss of luna-white differentiation within the left frontoparietal region which suggests an acute to subacute infarct. No hemorrhage. No mass effect. 2. Mild atherosclerotic plaque within the intracranial circulation. No severe stenosis or abrupt vessel cut off. No intracranial aneurysm. Electronically signed by: Zan Garcia M.D. 12/18/2018 3:[address] angio neck with con HISTORY: Stroke code stroke TECHNIQUE: Multiaxial CT angiography of the neck was performed IV contrast: None. All measurements were calculated based on NASCET criteria. Maximum intensity projection images were also obtained. A dose lowering technique was utilized adhering to the principles of ALARA. COMPARISON STUDY: None. FINDINGS: The aortic arch and proximal great vessels are widely patent. The right carotid system shows moderate plaque dimension of the carotid bifurcation but no major stenosis. There is plaque formation at the left carotid bifurcation with evidence for 95% plus stenosis left internal as well as left external carotid arteries. More distal aspect of the vessels appear unremarkable. Vertebral basilar system is unremarkable. IMPRESSION: 1. 95% plus stenosis/critical stenosis of the left internal and left external carotid arteries. 2. No significant stenosis of the right carotid system or vertebral basilar system. The above report was generated using voice recognition software. It may contain grammatical, syntax or spelling errors. Electronically signed by: Jaspreet Richardson M.D. 12/18/2018 3:02 PM ECG Data Attestation: I personally reviewed and interpreted this ECG as follows: Indication: other (neurological symptoms) Rate (beats per minute): 121 Rhythm: sinus rhythm Findings: + other (QR, QRS, and QRC within normal limits ); no ST depression and no ST elevation Blood Pressure Blood Pressure Findings: Elevated blood pressure Blood Pressure Disposition: further management by hospitalist PENNY Narrative 1415: Past medical records reviewed. The patient was evaluated in room B01 after a code stroke was called from triage. Patient was taken immediately to CT from triage. A complete history and physical exam was performed. 1422: Vital signs stable. Patient's CT of the head shows an acute infarct of the left superior temporal parietal lobe. The patient is not a TPA candidate as the onset of his symptoms are not clearly defined as he woke up with the symptoms at noon. His last known normal was at 5 AM, and thus the patient is not a TPA candidate. I spoke with Dr. Mena, [facility] t eleroke, about the patients case. She asked for a CTA of the head and neck. 1519: The patients repeat blood pressure is 161/84 without intervention. CTA of the head showed no significant stenosis. CTA of the neck showed 95% internal carotid artery stenosis of the left side. I spoke with Dr. Okeefe, and she said that the patient does not need to be transferred. She stated that he could be seen by vascular surgery here. She recommended Aspirin and Plavix. The patient states that he does not have a PCP. He will be admitted by the [facility] hospitalist. I spoke with FREDIS King, about the patient case. The patient will be further evaluated by Dr. López, [facility] hospitalist. Impression & Plan Stroke, Carotid artery stenosis Discharge Plan Visit Data *Final* Discharge Date/Time: 12/18/18 16:29 Chief Complaint: Neuro Symptoms/Deficit Stated Complaint: DIFFICULTY SPEAKING,CONFUSED ED Provider: Senthil Benral Discharge Problem: Stroke, Carotid artery stenosis Patient Disposition: Admitted As Inpatient Discharge Instructions Interventions: ED Discharge Assessment Last Done: 12/18/18 16:29 Discharge Problem: Stroke Qualifiers: CVA mechanism: stenosis Precerebral and cerebral artery: carotid artery Laterality of affected vessel: left Qualified Code(s): I63.232 - Cerebral infarction due to unspecified occlusion or stenosis of left carotid arteries Carotid artery stenosis Qualifiers: Laterality: left Qualified Code(s): I65.22 - Occlusion and stenosis of left ca rotid artery The scribe's documentation has been prepared under my direction and personally reviewed by me in its entirety. I confirm that the note above accurately reflects all work, treatment, procedures, and medical decision making performed by me.
[2018-12-18] MEDS ORDERED: INSULIN HUMAN REGULAR IV BOLUS 2 UNITS in SYRINGE 0 ML IV ONE (18:00)
[2018-12-18] MEDS ORDERED: INSULIN REGULAR 250 UNITS in SODIUM CHLORIDE 0.9% 247.5 ML IV SCH (18:00)
[2018-12-18] MEDS ORDERED: GADOBUTROL 65ML VIAL IV PRN (18:43)
--- NOTE | 2018-12-18 19:10 | Magnetic Resonance Report ---
MR brain wo/w con CLINICAL HISTORY: 68 years-old Male presenting with CVA, mild confusion, difficulty walking, difficul ty with speech, symptoms began today at noon, reported collapsing. TECHNIQUE: Multisequence, multiplanar MR imaging of the brain was performed before and after the admi nistration of intravenous contrast. IV contrast: 7.5 mL of Gadavist. COMPARISON: Noncontrast CT head performed the same day. FINDINGS: Localizer images: Unremarkable. Normal midline sagittal structures. Proportional ventricular and sulcal prominence, likely age-relate d parenchymal volume loss. Restricted diffusion within the left temporoparietal region, which is with in the left middle cerebral artery territory distribution. This also demonstrates mild regional sulca l effacement as well as T2/FLAIR hyperintensity. No additional focus of acute ischemia. No hemorrhage . Periventricular and subcortical white matter T2/FLAIR hyperintensity, nonspecific but likely indica tive of chronic small vessel ischemic change. No mass effect or midline shift. No abnormal parenchyma l enhancement. No extra-axial fluid collection. T2 skull base flow voids preserved. Bone marrow signal intensity within the calvarium within normal limits. Expansile polypoid lesion in the region of the left maxillary sinus. IMPRESSION: 1. Acute left temporoparietal infarct in the left MCA territory. The presence of T2/FLAIR hyperinten se signal likely indicates an infarct at least 6-12 hours old, which is compatible with the clinical history. No hemorrhage. 2. Expansile left maxillary sinus lesion. This could be evaluated on a nonurgent outpatient basis wi th a CT sinus. The report will be called/faxed according to standard departmental protocol. Electronically signed by: Genaro Leos M.D. 12/18/2018 7:09 PM
[2018-12-18] MEDS: SODIUM CHLORIDE 0.9% 1000ML 1,000 ML IV SCH (19:13)
[2018-12-18] MEDS: INSULIN ASPART 100 UNITS/ML 3 ML PEN SC SCH ×2 (20:34→21:15)
[2018-12-19] MEDS: SODIUM CHLORIDE 0.9% 1000ML 1,000 ML IV SCH ×3 (01:22→14:45)
[2018-12-19 06:20] LABS: Estimated Average Glucose 372 mg/dl; Hemoglobin A1C 14.6 % (4.5-5.6)
[2018-12-19 07:24] LABS: Basophils # (auto) 0.03 K/uL (0-0.2); Basophils % (auto) 0.3 %; Eosinophils # (auto) 0.09 K/uL (0-0.5); Hematocrit (blood only) 38.3 % (42-52); Hemoglobin 13.2 g/dL (14.0-18.0); Immature Granulocytes # (auto) 0.01 K/uL (0.00-0.02); Immature Granulocytes % (auto) 0.1 %; Lymphocytes # (auto) 4.11 K/uL (1.2-3.4); Lymphocytes % (auto) 46.9 %; Mean Corpuscular Hgb Conc 34.5 g/dL (32-36); Mean Corpuscular Volume 87.4 fL (80-100); Monocytes # (auto) 0.53 K/uL (0.11-0.59); Monocytes % (auto) 6.1 %; Neutrophils # (auto) 3.99 K/uL (1.4-6.5); Neutrophils % (auto) 45.6 %; Platelet Count 223 K/uL (130-400); RDW Coefficient of Variation 12.8 % (11.5-14.5); RDW Standard Deviation 41.2 fL (36.4-46.3); Red Blood Count 4.38 M/uL (4.7-6.1); White Blood Count 8.76 K/uL (4.8-10.8)
[2018-12-19] MEDS: CLOPIDOGREL BISULFATE 75 MG TAB PO SCH (07:59)
[2018-12-19] MEDS: INSULIN ASPART 100 UNITS/ML 3 ML PEN SC SCH ×4 (08:00→20:37)
[2018-12-19] MEDS: MULTIVITAMIN TAB PO SCH (08:00)
[2018-12-19] MEDS: ASPIRIN 81 MG ECTAB PO SCH (08:00)
[2018-12-19 08:06] LABS: BUN Creatinine Ratio 16.7 (10-20); Calcium 8.1 mg/dl (8.5-10.1); Creatinine Clr Calc Pharmacy 66.3 ml/min; Est GFR (African American) 91.3; Est GFR (Non-African American) 78.8
[2018-12-19] MEDS ORDERED: PHARMACY GLYCEMIC MGMT CONSULT PRN (10:11)
--- NOTE | 2018-12-19 11:10 | Consultation ---
Date of Consultation December 19, 2018 Assessment & Plan (1) Carotid stenosis, symptomatic, with infarction: Pt with acute L hemispheric infarct and severe LICAS. Recommend Plavix and asa if no contraindications. Recommend pt undergo L CEA in near future. Dr Rivers unavailable d/t medical emergency, so consult placed for Dr High after speaking with him about the pt by phone. He will eval tomorrow. Pt agreeable. Also discussed case with Dr Song and advised that pt will require cardiac clearance for procedure if Dr High decides to proceed. Present on Admission?: Yes (2) Family history of abdominal aortic aneurysm: Pt father with AAA and pt states has never been screened. Will order aortic US to be done routine for screening. Present on Admission?: Yes History of Present Illness Reason for Consultation: LICAS and CVA Attending Physician: Anjali Song MD History of Present Illness 68 yo m without significant medical hx d/t not seeing a physician in several ye ars, admitted with L hemispheric CVA yesterday and seen in consultation for LICAS of 95% noted on CTA. Pt states he was in normal state of health until yesterday when he awoke from sleeping. Pt had been traveling with his and arrived home around 0500 yesterday, then went to sleep. When he awoke, he was very confused and aphasic. brought him to [facility], and he was eval. No tPA administered d/t unknown time sx started. Pt states feeling significantly improved today, less confused, but still having some difficulty remembering certain details. Also with speech improvement, but still some mild dysarthria. Pt denies ARGUETA, vision changes, amaurosis, chest pain, palpitations, SOB, recent illness, abd pain, N/V, rest pain, claudication, other complaints. CTA neck demonstrates 95% stenosis L ICA. MRI brain demonstrates L temporoparietal infarct in MCA distribution. Allergies Allergy/AdvReac Type Severity Reaction Status Date / Time No Known Allergies Allergy Verified 12/18/18 14:58 Home Medications Home Medications Medication Instructions Recorded Confirmed Type aspirin 325 mg PO DAILY 12/18/18 12/18/18 History multivitamin 1 tab PO DAILY 12/18/18 12/18/18 History naproxen sodium 220 - 440 mg PO DIRECTED PRN 12/18/18 12/18/18 History Patient History Medical History Wrist fracture (Chronic) s/p repair Family History Father Abdominal aortic aneurysm Mother Stroke Fatal at age 88 Brother Diabetes Social History Preferred Language: Thai Communication Ability: Effective Technical Trainer Required: No Beliefs That Will Affect Care: None marital status: Current Living Situation: Spouse Other Information That Helps Us Care for You: No Feels Safe at Home: Yes Safety Concerns: Feels Safe At This Time Smoking Status: Never smoker Do You Dip or Chew Tobacco: No Second Hand Exposure: No Tobacco Cessation Education Requested by Patient: No Hx Alcohol Use: Yes Hx Substance Use: No Review of Systems Constitutional: no fever, no chills, no sweats, no fatigue, no malaise and no weight loss Eyes: no blind spots and no problem reported Ear, Nose, Mouth, Throat: no hearing loss and no sore throat Respiratory: no cough, no dyspnea, no dyspnea on exertion and no hemoptysis Cardiovascular: no chest pain, no palpitations, no syncope, no claudication and no problem reported Gastrointestinal: no abdominal pain, no nausea, no vomiting, no diarrhea/loose stools and no blood in stools Musculoskeletal: no back pain, no joint pain, no swelling and no muscle weakness Integumentary: no rash, no non-healing lesions, no skin ulcer, no wounds and no erythema Neurologic: + abnormal speech and + confusion; no localized weakness, no generalized weakness, no paralysis, no loss of sensation, no tingling, no numbness, no paresthesia, no seizure-like activity, no syncope and no headache(s) Psychiatric: as per Subjective / HPI Hematologic / Lymphatic: no easy bleeding, no easy bruising, no coagulopathy, no night sweats and no unexplained weight loss Physical Exam Constitutional: WD/WN, vitals as above well developed, well nourished, healthy appearing, well groomed, cooperative and comfortable; not ill appearing, not in distress and not combative Eyes: PERRL, conjunctivae normal, anicteric sclerae EOM intact bilaterally ENMT: external ear and nose normal, oropharynx normal Nose: no nasal discharge Neck: trachea midline, no thyromegaly no tracheal deviation, no neck crepitus and neck nontender Respiratory: able to speak in complete sentences; does not use accessory muscles, no cough and no audible wheezes Auscultation: lungs clear to auscultation bilaterally and + diminished lung sounds; no rhonchi and no wheezes Cardiovascular: RRR, no murmur, no edema Heart Sounds: no gallop and no murmur Vessels: + carotid bruit, femoral pulses present, posterior tibial pulses present, dorsalis pedis pulses present, brachial pulses present and radial pulses present; no femoral bruit and + abnormal peripheral pulses Extremities: normal capillary refill; no edema Chest (Breasts): Chest: normal inspection of chest Gastrointestinal (Abdomen): normal bowel sounds, soft, nontender, no hepatosplenomegaly Inspection/Auscultation: abdomen normal to inspection, normal bowel sounds and + visible herniation (umbilical); abdomen not distended and no visible pulsation Percussion/Palpation: abdomen soft; abdomen nontender, no guarding, abdomen not rigid and no abdominal aortic enlargement Musculoskeletal: no cyanosis or clubbing, extremities motor strength 5/5 Head/Neck/Chest: normocephalic, head atraumatic and neck supple Extremities: extremities normal to inspection and strength 5/5 throughout; full ROM of extremities Skin: no rashes, warm and dry normal turgor and + induration; no rashes, no lesions, no ulcers, no erythema and no mottling Neurologic: moves all extremities and awake; no focal motor deficits, not confused and not obtunded Speech / Cognition: + abnormal speech and + expressive aphasia (more dysarthria, difficulty word finding); no receptive aphasia and normal cognition Motor/Sensory: no tremor and no sensory deficit Cranial Nerves: EOM intact bilaterally, normal facial strength and tongue midline Gait: not gait assisted Psychiatric: A+Ox3, euthymic affect Orientation: cooperative Apperance: appropriately dressed, appropriately groomed and appeared stated age Affect: euthymic affect Thought Process: goal directed thought process, linear/logical thought process and clear/coherent thought process Cognition: recent memory grossly intact, remote memory grossly intact, attention grossly intact and language grossly intact Estimated Intelligence: average estimated intelligence Results & Data Vital Signs (Past 12 Hours) Vital Signs Temp Pulse Pulse Resp BP Pulse Ox 05/14/19 08:00 96 H 12/19/18 07:04 36.7 C 96 H 17 152/83 H 98 12/19/18 03:24 37.1 C 96 H 17 112/72 97 12/18/18 23:29 37.1 C 105 H 18 152/84 H 97
[2018-12-19] MEDS ORDERED: INSULIN GLARGINE SOLOSTAR 100 UNITS/ML 3 ML PEN SC ONE (11:15)
--- NOTE | 2018-12-19 14:34 | Ultrasound Report ---
US duplex aorta/iliacs CLINICAL HISTORY: 68 years-old Male presenting with family hx AAA, screening. TECHNIQUE: Real-time grayscale and color and spectral Doppler ultrasound imaging of the abdominal aor ta and iliac arteries was performed. COMPARISON: None. FINDINGS: Proximal aorta: Patent. Transverse dimension 2.6 x 2.7 cm. Mid aorta: Patent. Transverse dimension 1.7 x 1.6 cm. Distal aorta: Patent. Transverse dimension 1.7 x 1.6 cm. Aorta peak systolic velocity (PSV): 149 cm/s. Right iliac artery: Patent. Transverse dimension 1.1 x 1.0 cm. Left iliac artery: Patent. Transverse dimension 1.2 x 1.1 cm. IMPRESSION: 1. No evidence of abdominal aortic aneurysm. Electronically signed by: Genaro Leos M.D. 12/19/2018 2:33 PM
--- NOTE | 2018-12-19 15:33 | Pharmacy Report ---
Glycemic Control Consultation - Date of Service December 19, 2018 - Scope Scope: Glycemic Pharmacist consulted by Dr Song on [12-19-18] for glycemic control and to write orders per [facility] ED inpatient glycemic control protocol - Objective Weight: 76.7 kg Accuchecks BSG (last 24hrs): 12/18/18 12/18/18 12/18/18 17:12 17:14 20:19 Glucose POC Glucose 386 H* 360 H* 265 H 12/18/18 12/18/18 12/18/18 21:18 22:18 23:18 Glucose POC Glucose 223 H 212 H 186 H 12/19/18 12/19/18 12/19/18 00:12 02:13 04:17 Glucose POC Glucose 189 H 184 H 164 H 12/19/18 12/19/18 12/19/18 06:16 06:53 07:35 Glucose 162 H POC Glucose 172 H 194 H 12/19/18 12/19/18 12/19/18 09:35 11:25 15:14 Glucose POC Glucose 183 H 201 H 143 H Laboratory Data (last 24hrs): 12/18/18 12/19/18 14:18 06:53 Potassium 4.0 Carbon Dioxide 25 Anion Gap 7.0 Creatinine 0.97 D Est Cr Clr Drug Dosing 66.3 Beta-Hydroxybutyric Acd 21.91 H HbA1c: Hemoglobin A1c 14.6 % (4.5-5.6) H 12/18/18 16:59 - Recent Pertinent Medications Outpatient Anti-diabetic Regimen: * no hx of prior DM * A1c = 14.6 % 12/18/18 Risk Factors for Insulin Resistance: * Diet: T2DM - Assessment & Plan Assessment & Plan: ASSESSMENT: * Patient admitted with possible CVA and also hyperglycemia. A1C on admission 14.6%. No prior hx of diabetes per provider notes. * Patient started on insulin drip / no DKA noted on arrival, normal AG * Drip has been at set rate of 1.2 ml/hr for the last 12 hrs with no rate change - will plan to transition off drip this afternoon PLAN FOR INPATIENT GLYCEMIC CONTROL: * Insulin drip/moderate * Goal Range 150-250 mg/dl * Will transition off drip this afternoon * Basal insulin * Lantus 20 units x 1 this morning (overlap 6 hours with drip/or will d/c drip if hold order - whichever first) * Patient currently has not been on drip >24 hrs therefore used a lower Lantus dosing, but will add additional Lantus for tonight if needed * Wanted to also be less aggressive due to very elevated A1C and risk of hypoglycemic effects from patient with normal BSGs * Scale for Lantus HS for tonight -For BSG less than 180 - no Lantus -For BSG 180 or greater - Lantus 7 units * Bolus insulin * NovoLog per scale ACHS or Q6hrs while NPO * Goal Range: Low 140 mg/dL - High 180mg/dL * Correction Factor: 30 mg/dL/unit * Nutritional / Prandial insulin per carb ratio of 1 unit per 10 grams CHO consumed * Please note that the plan above was derived based on current level of insulin resistance and hospital stress. These recommendations are appropriate for inpatient admission only. Plan of care upon discharge will need to be reassessed to avoid potential outpatient hypo/hyperglycemia. Thank you.
--- NOTE | 2018-12-19 15:34 | Neurology Consultation ---
Date of Consultation December 19, 2018 Assessment & Plan (1) CVA (cerebral vascular accident): 1. MRI - left superior temporal parietal lobe infarct 2. CTA neck - 95% stenosis L ICA and L external carotid artery 3. high intensity statin- Lipitor 4. SHAWNA pending 5. vascular consult- planning procedure 6. optimize HTN/HLD, DM LDL <70 7. PT/OT speech 8. will need to establish PCP and neurology- is in [facility]- if decided to follow with [facility] will see back in 4-6 weeks after discharge 9. started aspirin 81 mg and plavix 75 mg daily- was taking aspirin prior will dual antiplt x 21 days then Plavix for life unless vascular wants to continue dual plt therapy longer. will follow up with patient post op day 1 for any further recommendations Supervising Physician Co-Signing Physician Notes I have seen and discussed above patient with Dr Yobany Dubois, neurology I seen Mr. Aguilar today, interviewed he and his and have reviewed his laboratory studies have performed examination at this point him in total agreement with the recommendations outlined above by Юлия Hair PA-C. This man has a remote history of hypertension but has not taken any antihypertensive agents for at least a decade. He was at least taking an aspirin a day but any attention to his general medical health was certainly minimal and he now presents with an acute left temporal lobe infarction undoubtedly due to thromboembolic disease from his high-grade left internal carotid artery stenosis and on laboratory analysis has diabetes, dyslipidemia and is also hypertensive. Vascular surgery has seen him. The timing of a left carotid endarterectomy remains unclear hopefully will be done fairly soon and in the interim we are just recommending management of his vascular risk factors, and dual antiplatelet therapy with Plavix and aspirin. We will check back tomorrow to see how plans are going for endarterectomy He will need to establish a primary care physician and post endarterectomy will probably not need neurologic visits other than perhaps on one occasion about 6 weeks after his surgical procedure to assess the degree of residual aphasia He clearly will need speech therapy but am not sure any physical therapy is going to be required here as his exam shows minimal if any motor deficits other than perhaps a slight right upper motor neuron facial asymmetry Yobany Dubois MD History of Present Illness Reason for Consultation: CVA Requesting Physician: Anjali Song MD Attending Physician: Anjali Song MD History of Present Illness Nigel is a 68 year old male who presents the ED with difficulty speaking. He had a PMH HTN and was on blood pressure medication at one point but stopped it because it made him tired. He had not followed up with his PCP in > 20 years. He and his were at a [place] in [place] and did not arrive home until 5:00am. He went to bed and woke up around noon and was having difficulty speaking and some mild confusion. He knew what he wanted to say however was unable to get the words out. Over the past several months he had episodes where he " collapses" weakness in legs. He also had increased thirst and urination for several months which his states she thought he was becoming DM but he wouldn't go to get checked. Stroke alert was called but no tPa was given secondary to timing. Head CTA shows an acute/subacute infarct in the left frontoparietal region. Neck CTA shows 95% stenosis within the left internal and external carotid arteries. Patient was given a full dose aspirin and clopidogrel 300 mg as per recommendations from [place] stroke alert. Labs also show blood sugar of 378 (no history of diabetes). denies CP,SOB, abdominal pain, one sided weakness, numbness, tingling, N, V, swallowing issues, headache Allergies Allergy/AdvReac Type Severity Reaction Status Date / Time No Known Allergies Allergy Verified 12/18/18 14:58 Home Medications Home Medications Medication Instructions Recorded Confirmed Type aspirin 325 mg PO DAILY 12/18/18 12/18/18 History multivitamin 1 tab PO DAILY 12/18/18 12/18/18 History naproxen sodium 220 - 440 mg PO DIRECTED PRN 12/18/18 12/18/18 History Patient History Medical History Wrist fracture (Chronic) s/p repair Family History Father Abdominal aortic aneurysm Mother Stroke Fatal at age 88 Brother Diabetes Social History Preferred Language: Liberian Communication Ability: Effective Tomographic Tech Required: No Beliefs That Will Affect Care: None marital status: Current Living Situation: Spouse Other Information That Helps Us Care for You: No Feels Safe at Home: Yes Safety Concerns: Feels Safe At This Time Smoking Status: Never smoker Do You Dip or Chew Tobacco: No Second Hand Exposure: No Tobacco Cessation Education Requested by Patient: No Hx Alcohol Use: Yes Hx Substance Use: No Physical Exam Physical Exam: Physical Exam: Constitutional: appearance nourished, healthy and normal Ears, Nose, Mouth and Throat: mucous membranes moist, no injection and skin normal, eyes normal Cardiovascular: normal S-1 and S-2 and regular rate and rhythm Respiratory: clear to auscultation (CTA) and no rales, rhonchi or wheeze Musculoskeletal: no peripheral edema and good distal pulses Skin: no stigmata of neurocutaneous disease noted and normal and intact Eyes: extraocular muscles intact (EOMI) and pupils equal, round and reactive to light (PERRL) NEUROLOGIC EXAMINATION: Mental status: Alert and interactive Oriented to day, [facility], president is camila, 2019, unable to say no ifs ands or buts, able to close eyes stick out tongue point to ceiling with left hand Oriented to person Speech dysphasia Cranial Nerves smile eye brow raise symmetric, tongue midline Reflexes: Deep tendon reflexes were symmetrical and graded 2/5. Sensory: intact to light and cool touch Coordination: finger to nose no bi pass, heel to lucio intact Gait/Stance: Posture normal sitting up in bed Motor: Negative for pronator drift of out stretched arms with eyes closed. Strength: biceps triceps hand automotive fuel systems converter 5/5 bilaterally, hip flex patellar/plantar hip flex ext 5/5 bilaterally Results & Data Vital Signs (Past 12 Hours) Vital Signs Temp Pulse Pulse Resp BP Pulse Ox 12/19/18 12:02 36.7 C 83 18 124/73 96 12/19/18 08:00 96 H 12/19/18 07:04 36.7 C 96 H 17 152/83 H 98 12/19/18 03:24 37.1 C 96 H 17 112/72 97 Laboratory Results Abnormal lab results 12/18/18 12/18/18 12/18/18 Range/Units 14:18 14:22 14:28 RBC (4.7-6.1) M/uL Hgb (14.0-18.0) g/dL Hct (42-52) % Lymph # (Auto) (1.2-3.4) K/uL POC Sodium 134 L (135-144) mEq/L Sodium 132 L (136-145) mmol/L POC Chloride 97 L (101-112) mEq/L POC BUN 29 H (7-18) mg/dl BUN 27 H (7-18) mg/dl Creatinine 1.50 H (0.6-1.4) mg/dl Glucose 378 H* (70-99) mg/dl POC Glucose 403 H* (70-99) POC Glucose (other) 396 H* (70-99) mg/dl Hemoglobin A1c (4.5-5.6) % Calcium (8.5-10.1) mg/dl POC Ioniz Calcium Jaquelin 1.05 L (1.12-1.32) mmol/l AST 12 L (15-37) U/L Alkaline Phosphatase 127 H (45-117) U/L Total Protein 8.5 H (6.4-8.2) gm/dl Globulin 4.6 H (2.5-4.0) gm/dl Albumin/Globulin Ratio 0.8 L (0.9-2) Triglycerides (0-150) mg/dl Cholesterol (0-200) mg/dl Beta-Hydroxybutyric Acd 21.91 H (0.2-2.81) mg/dl 12/18/18 12/18/18 12/18/18 Range/Units 16:59 17:12 17:14 RBC (4.7-6.1) M/uL Hgb (14.0-18.0) g/dL Hct (42-52) % Lymph # (Auto) (1.2-3.4) K/uL POC Sodium (135-144) mEq/L Sodium (136-145) mmol/L POC Chloride (101-112) mEq/L POC BUN (7-18) mg/dl BUN (7-18) mg/dl Creatinine (0.6-1.4) mg/dl Glucose (70-99) mg/dl POC Glucose 386 H* 360 H* (70-99) POC Glucose (other) (70-99) mg/dl Hemoglobin A1c 14.6 H (4.5-5.6) % Calcium (8.5-10.1) mg/dl POC Ioniz Calcium Jaquelin (1.12-1.32) mmol/l AST (15-37) U/L Alkaline Phosphatase (45-117) U/L Total Protein (6.4-8.2) gm/dl Globulin (2.5-4.0) gm/dl Albumin/Globulin Ratio (0.9-2) Triglycerides (0-150) mg/dl Cholesterol (0-200) mg/dl Beta-Hydroxybutyric Acd (0.2-2.81) mg/dl 12/18/18 12/18/18 12/18/18 Range/Units 20:19 21:18 22:18 RBC (4.7-6.1) M/uL Hgb (14.0-18.0) g/dL Hct (42-52) % Lymph # (Auto) (1.2-3.4) K/uL POC Sodium (135-144) mEq/L Sodium (136-145) mmol/L POC Chloride (101-112) mEq/L POC BUN (7-18) mg/dl BUN (7-18) mg/dl Creatinine (0.6-1.4) mg/dl Glucose (70-99) mg/dl POC Glucose 265 H 223 H 212 H (70-99) POC Glucose (other) (70-99) mg/dl Hemoglobin A1c (4.5-5.6) % Calcium (8.5-10.1) mg/dl POC Ioniz Calcium Jaquelin (1.12-1.32) mmol/l AST (15-37) U/L Alkaline Phosphatase (45-117) U/L Total Protein (6.4-8.2) gm/dl Globulin (2.5-4.0) gm/dl Albumin/Globulin Ratio (0.9-2) Triglycerides (0-150) mg/dl Cholesterol (0-200) mg/dl Beta-Hydroxybutyric Acd (0.2-2.81) mg/dl 12/18/18 12/19/18 12/19/18 Range/Units 23:18 00:12 02:13 RBC (4.7-6.1) M/uL Hgb (14.0-18.0) g/dL Hct (42-52) % Lymph # (Auto) (1.2-3.4) K/uL POC Sodium (135-144) mEq/L Sodium (136-145) mmol/L POC Chloride (101-112) mEq/L POC BUN (7-18) mg/dl BUN (7-18) mg/dl Creatinine (0.6-1.4) mg/dl Glucose (70-99) mg/dl POC Glucose 186 H 189 H 184 H (70-99) POC Glucose (other) (70-99) mg/dl Hemoglobin A1c (4.5-5.6) % Calcium (8.5-10.1) mg/dl POC Ioniz Calcium Jaquelin (1.12-1.32) mmol/l AST (15-37) U/L Alkaline Phosphatase (45-117) U/L Total Protein (6.4-8.2) gm/dl Globulin (2.5-4.0) gm/dl Albumin/Globulin Ratio (0.9-2) Triglycerides (0-150) mg/dl Cholesterol (0-200) mg/dl Beta-Hydroxybutyric Acd (0.2-2.81) mg/dl 12/19/18 12/19/18 12/19/18 Range/Units 04:17 06:16 06:53 RBC 4.38 L (4.7-6.1) M/uL Hgb 13.2 L (14.0-18.0) g/dL Hct 38.3 L (42-52) % Lymph # (Auto) 4.11 H (1.2-3.4) K/uL POC Sodium (135-144) mEq/L Sodium (136-145) mmol/L POC Chloride (101-112) mEq/L POC BUN (7-18) mg/dl BUN (7-18) mg/dl Creatinine (0.6-1.4) mg/dl Glucose (70-99) mg/dl POC Glucose 164 H 172 H (70-99) POC Glucose (other) (70-99) mg/dl Hemoglobin A1c (4.5-5.6) % Calcium (8.5-10.1) mg/dl POC Ioniz Calcium Jaquelin (1.12-1.32) mmol/l AST (15-37) U/L Alkaline Phosphatase (45-117) U/L Total Protein (6.4-8.2) gm/dl Globulin (2.5-4.0) gm/dl Albumin/Globulin Ratio (0.9-2) Triglycerides (0-150) mg/dl Cholesterol (0-200) mg/dl Beta-Hydroxybutyric Acd (0.2-2.81) mg/dl 12/19/18 12/19/18 12/19/18 Range/Units 06:53 07:35 09:35 RBC (4.7-6.1) M/uL Hgb (14.0-18.0) g/dL Hct (42-52) % Lymph # (Auto) (1.2-3.4) K/uL POC Sodium (135-144) mEq/L Sodium (136-145) mmol/L POC Chloride (101-112) mEq/L POC BUN (7-18) mg/dl BUN (7-18) mg/dl Creatinine (0.6-1.4) mg/dl Glucose 162 H (70-99) mg/dl POC Glucose 194 H 183 H (70-99) POC Glucose (other) (70-99) mg/dl Hemoglobin A1c (4.5-5.6) % Calcium 8.1 L (8.5-10.1) mg/dl POC Ioniz Calcium Jaquelin (1.12-1.32) mmol/l AST (15-37) U/L Alkaline Phosphatase (45-117) U/L Total Protein (6.4-8.2) gm/dl Globulin (2.5-4.0) gm/dl Albumin/Globulin Ratio (0.9-2) Triglycerides 264 H (0-150) mg/dl Cholesterol 277 H (0-200) mg/dl Beta-Hydroxybutyric Acd (0.2-2.81) mg/dl 12/19/18 Range/Units 11:25 RBC (4.7-6.1) M/uL Hgb (14.0-18.0) g/dL Hct (42-52) % Lymph # (Auto) (1.2-3.4) K/uL POC Sodium (135-144) mEq/L Sodium (136-145) mmol/L POC Chloride (101-112) mEq/L POC BUN (7-18) mg/dl BUN (7-18) mg/dl Creatinine (0.6-1.4) mg/dl Glucose (70-99) mg/dl POC Glucose 201 H (70-99) POC Glucose (other) (70-99) mg/dl Hemoglobin A1c (4.5-5.6) % Calcium (8.5-10.1) mg/dl POC Ioniz Calcium Jaquelin (1.12-1.32) mmol/l AST (15-37) U/L Alkaline Phosphatase (45-117) U/L Total Protein (6.4-8.2) gm/dl Globulin (2.5-4.0) gm/dl Albumin/Globulin Ratio (0.9-2) Triglycerides (0-150) mg/dl Cholesterol (0-200) mg/dl Beta-Hydroxybutyric Acd (0.2-2.81) mg/dl Diagnostic Findings CXR-Negative chest. CT head- Acute/subacute infarct left superior temporal parietal lobe No acute intracranial hemorrhage. Expansile polypoid change superior left maxillary sinus. CTA head- 3 cm hypodensity with loss of luna-white differentiation within the left frontoparietal region which suggests an acute to subacute infarct. No hemorrhage. No mass effect. Mild atherosclerotic plaque within the intracranial circulation. No severe stenosis or abrupt vessel cut off. No intracranial aneurysm. CTA neck-95% plus stenosis/critical stenosis of the left internal and left external carotid arteries. No significant stenosis of the right carotid system or vertebral basilar system. MRI brain-Acute left temporoparietal infarct in the left MCA territory. The presence of T2/FLAIR hyperintense signal likely indicates an infarct at least 6- 12 hours old, which is compatible with the clinical history. No hemorrhage. Expansile left maxillary sinus lesion. This could be evaluated on a nonurgent outpatient basis with a CT sinus.
--- NOTE | 2018-12-19 15:49 | Hospitalist Progress Note ---
Date of Service December 19, 2018 Assessment & Plan (1) CVA (cerebral vascular accident): Admitted with sudden onset of expressive aphasia, with right-sided weakness MRI of brain shows IMPRESSION: 1. Acute left temporoparietal infarct in the left MCA territory. The presence of T2/FLAIR hyperintense signal likely indicates an infarct at least 6-12 hours old, which is compatible with the clinical history. No hemorrhage. 2. Expansile left maxillary sinus lesion. This could be evaluated on a nonurgent outpatient basis with a CT sinus. -Neck CTA showing 95% stenosis of the left internal and external carotid arteries -TPA not indicated due to unknown last well time (patient woke up with symptoms) Patient is continued with aspirin and Plavix, given loading dose of Plavix in the ED Neurologically patient symptoms improved,-no dysphagia, no problem in articulation, weakness gradually improved on the right side, still have moderate expressive aphasia/word finding difficulty Appreciate input from neurology Patient will need vascular surgery evaluation for significant left carotid art umberto stenosis, possible source of thromboembolic event Will need uninterrupted aspirin and Plavix treatment for at least 3 months, started with high intensity statin Lipitor 40 mg daily, fasting lipid panel shows LDL 187, goal LDL less than 70 (2) Carotid stenosis: - -Patient presenting from home with reports of expressive aphasia -In the ED, head CTA showing acute/subacute left frontoparietal infarction CT of neck shows critical right sided carotid stenosis -Vascular surgery consulted, appreciate input, Dr. Rivers is not available for the next few weeks for vascular procedure General surgery consulted for recommendation for left carotid endarterctomy (3) Newly diagnosed diabetes: Patient has not seen any physician for last 20 years Not on any medications -Glucose on arrival 378 Hemoglobin A1c 13.8 Was initially treated with IV insulin drip, BSG markedly improved, no evidence of DKA Appreciate input from pharmacy for glycemic management, transition made to basal Lantus and insulin sliding scale, health promotion educator consulted, Insulin teaching given at bedside Patient will be discharged on combination of oral meds and insulin Will need to establish care with family physician to further monitoring and treatment of type 2 diabetes (4) Tachycardia: (5) Abnormal renal function: Acute renal failure, presented with creatinine 1.5, creatinine improved to 1.1 approximate baseline with IV fluids Patient is encouraged to oral intake, appreciate input from speech swallow, does not need any dietary modification IV fluids discontinued (6) DVT prophylaxis: -SCDs, ambulate CODE STATUS: Full code Disposition: Order for PT OT evaluation Social service consulted for discharge planning Patient does not have a family physician We will try to establish family physician on discharge, also need very close follow-up with vascular surgery for left carotid artery stenosis requiring endarterectomy and also neurology Subjective Has mild expressive aphasia, no weakness or paresthesia on right upper and lower extremity, denies of any headache, no blurred vision Physical Exam Constitutional: WD/WN, vitals as above no acute distress Eyes: PERRL, conjunctivae normal, anicteric sclerae ENMT: external ear and nose normal, oropharynx normal Neck: trachea midline, no thyromegaly Respiratory: normal respiratory effort, lungs clear to auscultation Cardiovascular: RRR, no murmur, no edema Gastrointestinal (Abdomen): normal bowel sounds, soft, nontender, no hep atosplenomegaly Musculoskeletal: no cyanosis or clubbing, extremities motor strength 5/5 Skin: no rashes, warm and dry Neurologic: no focal motor deficits Expressive aphasia, normal muscle strength, Psychiatric: A+Ox3, euthymic affect Results & Data Vital Signs (Past 12 Hours) Vital Signs Temp Pulse Pulse Resp BP Pulse Ox 12/19/18 15:00 36.9 C 103 H 20 149/79 H 95 12/19/18 12:02 36.7 C 83 18 124/73 96 12/19/18 08:00 96 H 12/19/18 07:04 36.7 C 96 H 17 152/83 H 98
[2018-12-19] MEDS ORDERED: DC IV INSULIN INFUSION 1 EA DEVI ONE (17:30)
[2018-12-19] MEDS ORDERED: INSULIN GLARGINE SOLOSTAR 100 UNITS/ML 3 ML PEN SC SCH (21:00)
[2018-12-20] MEDS: INSULIN ASPART 100 UNITS/ML 3 ML PEN SC SCH ×4 (00:05→13:00)
[2018-12-20 07:17] LABS: Basophils # (auto) 0.03 K/uL (0-0.2); Basophils % (auto) 0.4 %; Eosinophils # (auto) 0.04 K/uL (0-0.5); Eosinophils % (auto) 0.5 %; Hematocrit (blood only) 40.1 % (42-52); Hemoglobin 14.1 g/dL (14.0-18.0); Immature Granulocytes # (auto) 0.02 K/uL (0.00-0.02); Immature Granulocytes % (auto) 0.2 %; Lymphocytes % (auto) 33.7 %; Mean Corpuscular Hgb Conc 35.2 g/dL (32-36); Mean Corpuscular Volume 87.2 fL (80-100); Mean Platelet Volume 9.9 fL (7.4-10.4); Monocytes # (auto) 0.66 K/uL (0.11-0.59); Neutrophils # (auto) 4.75 K/uL (1.4-6.5); Neutrophils % (auto) 57.2 %; Platelet Count 224 K/uL (130-400); RDW Coefficient of Variation 12.8 % (11.5-14.5)
[2018-12-20 07:52] LABS: BUN Creatinine Ratio 12.8 (10-20); Calcium 8.4 mg/dl (8.5-10.1); Creatinine Clr Calc Pharmacy 65.6 ml/min; Est GFR (African American) 90.2; Est GFR (Non-African American) 77.8
[2018-12-20] MEDS: ASPIRIN 81 MG ECTAB PO SCH (08:13)
[2018-12-20] MEDS: MULTIVITAMIN TAB PO SCH (08:13)
[2018-12-20] MEDS: CLOPIDOGREL BISULFATE 75 MG TAB PO SCH (08:13)
[2018-12-20] MEDS ORDERED: GLUCOSE 40% GEL 15 GM TUBE PO PRN (08:15)
[2018-12-20] MEDS ORDERED: GLUCOSE 10 TABS/TUBE PO PRN (08:15)
[2018-12-20] MEDS ORDERED: GLUCAGON FOR INJ 1 MG VIAL IM PRN (08:15)
[2018-12-20] MEDS ORDERED: DEXTROSE 50% 50 ML SYRINGE IV PRN (08:15)
[2018-12-20] MEDS ORDERED: CARBOHYDRATES FOR HYPOGLYCEMIA PO PRN (08:15)
[2018-12-20] MEDS ORDERED: INSULIN GLARGINE SOLOSTAR 100 UNITS/ML 3 ML PEN SC SCH (09:00)
--- NOTE | 2018-12-20 12:10 | Surgery Consultation ---
Date of Consultation December 20, 2018 Assessment & Plan (1) Carotid stenosis, symptomatic, with infarction: Patient seen and examined with Dr. High. Recent imaging, labwork, consultations, provider progress notes reviewed. At this time, General Surgery recommends that patient undergo Left Carotid Endarterectomy. Will plan on endarterectomy in near future- patient to follow-up with Dr. High as an outpatient next week for re-evaluation. Continue Plavix and Aspirin therapy. Dr. Song notified. Patient asked if he can travel to [place] this weekend to see his son graduate and at this time, it is General Surgery's recommendation that patient not travel. History of Present Illness Reason for Consultation: Left ICA stenosis with CVA Attending Physician: Anjali Song MD History of Present Illness Mr. Aguilar is a 68-year-old male who presented to [facility] on Tuesday morning with reports of expressive aphasia. Patient states that he has never experienced these symptoms before and states that he continues to have trouble expressing his words still. When patient presented tot ED, head CTA showed acute/subacute left frontoparietal infarction. TPA contraindicated due to unknown last time time patient was without symptoms. Neck CTA (12/18/2018) reveals 95% plus stenosis/critical stenosis of the left internal and left external carotid arteries. No significant stenosis of the right carotid system or vertebral basilar system. Dr. Rivers was consulted, but he is currently unavailable. Currently, patient states that his symptoms are improved. He does state that he will still occasionally have trouble expressing words. He denies chest pain, denies shortness of breath. Patient reports that he does take a daily baby Aspirin. Allergies Allergy/AdvReac Type Severity Reaction Status Date / Time No Known Allergies Allergy Verified 12/18/18 14:58 Home Medications Home Medications Medication Instructions Recorded Confirmed Type aspirin 325 mg PO DAILY 12/18/18 12/18/18 History multivitamin 1 tab PO DAILY 12/18/18 12/18/18 History naproxen sodium 220 - 440 mg PO DIRECTED PRN 12/18/18 12/18/18 History Patient History Medical History Wrist fracture (Chronic) s/p repair Family History Father Abdominal aortic aneurysm Mother Stroke Fatal at age 88 Brother Diabetes Social History Preferred Language: Chinese Communication Ability: Effective Sanipractic Physician Required: No Beliefs That Will Affect Care: None marital status: Current Living Situation: Spouse Other Information That Helps Us Care for You: No Feels Safe at Home: Yes Safety Concerns: Feels Safe At This Time Smoking Status: Never smoker Do You Dip or Chew Tobacco: No Second Hand Exposure: No Tobacco Cessation Education Requested by Patient: No Hx Alcohol Use: Yes Hx Substance Use: No Physical Exam Physical Exam: Pt still, at times, has trouble finding words. He is able to ambulate independently throughout room. Constitutional: well developed and well nourished; no acute distress Results & Data Vital Signs (Past 12 Hours) Vital Signs Temp Pulse Pulse Resp BP Pulse Ox 12/20/18 10:29 98 H 12/20/18 07:09 36.6 C 56 L 17 121/71 96 12/20/18 04:00 37.1 C 98 H 17 148/89 H 98
--- NOTE | 2018-12-20 12:16 | Pharmacy Report ---
Pharmacy Glycemic Short Note 2 - Date of Service December 20, 2018 - Glycemic Short BSG Results (Last 24 hours): 12/19/18 12/19/18 12/19/18 15:14 16:32 20:25 Glucose POC Glucose 143 H 178 H 181 H 12/19/18 12/20/18 12/20/18 23:59 03:59 06:59 Glucose 201 H POC Glucose 209 H 201 H 12/20/18 12/20/18 07:37 11:32 Glucose POC Glucose 245 H 174 H OUTPATIENT ANTIDIABETIC REGIMEN: * no hx of prior DM * A1c = 14.6 % 12/18/18 Risk Factors for Insulin Resistance: * Diet: T2DM ASSESSMENT: 12/20/18 * Patient transitioned off of insulin drip yesterday to basal bolus insulin therapy * Blood sugars almost at goal - will adjust goal range down, but only to 120- 150mg/dl for newly diagnosed pt with A1c = 14.6% * Patient requires slightly tighter CF and CR * Patient had 26 unit of Lantus so far today, which seems to be a pretty good daily dose for patient. Will continue to adjust based on blood sugar trends. 12/19/18 * Patient admitted with possible CVA and also hyperglycemia. A1C on admission 14.6%. No prior hx of diabetes per provider notes. * Patient started on insulin drip / no DKA noted on arrival, normal AG * Drip has been at set rate of 1.2 ml/hr for the last 12 hrs with no rate change - will plan to transition off drip this afternoon PLAN FOR INPATIENT GLYCEMIC CONTROL: * Basal insulin * Lantus 25 units SQ daily * Bolus insulin * NovoLog per scale ACHS or Q6hrs while NPO * Goal Range: Low 120 mg/dL - High 150 mg/dL * Correction Factor: 25 mg/dL/unit * Nutritional / Prandial insulin per carb ratio of 1 unit per 8 grams CHO consumed PLAN FOR DISCHARGE: * Newly diagnosed Type 2 Diabetic - Unknown insulin needs at this time - * at this point would recommend Lantus 25 units daily + either Novolog with meals or a GLP-1
--- NOTE | 2018-12-20 13:24 | Neurology Progress Note ---
Date of Service December 20, 2018 Assessment & Plan (1) CVA (cerebral vascular accident): 1. MRI - left superior temporal parietal lobe infarct 2. CTA neck - 95% stenosis L ICA and L external carotid artery 3. high intensity statin- Lipitor 4. SHAWNA no ASD 5. vascular consult- planning procedure in 2 weeks 6. optimize HTN/HLD, DM LDL <70 7. PT/OT speech 8. will need to establish PCP and neurology- is in [facility]- if decided to follow with [facility] will see back in 4-6 weeks after discharge 9. started aspirin 81 mg and plavix 75 mg daily- was taking aspirin prior will dual antiplt x 21 days then Plavix for life unless vascular wants to continue dual plt therapy longer. 10. ok to discharge from neurology perspective if medically stable Supervising Physician Co-Signing Physician Notes I have seen and discussed above patient with Dr Yobany Dubois, neurology I have seen Mr. Aguilar today in accompaniment of his , reviewed the above note by Юлия Hair PA-C and have interviewed and examined the patient He currently has minimal if any word finding issues and a very minor right upper motor neuron facial asymmetry but otherwise has very few signs of the left temporal lobe infarction he has had no recurrent symptoms and is currently on dual antiplatelet therapy in addition to programs to modify his risk factors including management of his diabetes, hypertension and dyslipidemia Vascular surgery is anticipating performing a procedure within the next several weeks and I believe Dr. High is planning to do the procedure He is likely going to be discharged today or tomorrow morning His new primary care site will be the [facility] physician group in [place] Once the endarterectomy is complete and he is recovered happy to reassess him in neurology clinic for a one-time visit and then return to the care of his primary care physician Duration of dual antiplatelet therapy post endarterectomy is a little unclear but I suspect he can return to a single agent and likely the Plavix as he was on aspirin prior to this event but these decisions will be made by vascular surgery more than neurology and will be on an outpatient basis We can be signing off the case at present. Yobany Dubois MD Sanket Manning is a 68 year old male who presents the ED with difficulty speaking. He had a PMH HTN and was on blood pressure medication at one point but stopped it because it made him tired. He had not followed up with his PCP in > 20 years. He and his were at a casino in [place] and did not arrive home until 5:00am. He went to bed and woke up around noon and was having difficulty speaking and some mild confusion. He knew what he wanted to say however was unable to get the words out. Over the past several months he had episodes where he " collapses" weakness in legs. He also had increased thirst and urination for several months which his states she thought he was becoming DM but he wouldn't go to get checked. Stroke alert was called but no tPa was given secondary to timing. Head CTA shows an acute/subacute infarct in the left frontoparietal region. Neck CTA shows 95% stenosis within the left internal and external carotid arteries. Patient was given a full dose aspirin and clopidogrel 300 mg as per recommendations from [place] stroke alert. Labs also show blood sugar of 378 (no history of diabetes). Today he states vascular was in to see him and they are planning on doing surgery in 2 weeks. His is bed side and feels his speech is getting better. denies CP,SOB, abdominal pain, one sided weakness, numbness, tingling, N, V, swallowing issues, headache Physical Exam Physical Exam: Gen: alert NAD lungs CTA CV RRR strength biceps triceps hand battery filler 5/5 bilaterally, hip flex 5/5 bilaterally neuro: can say no ifs ands or buts, know [facility], 2019, president Mahin no pronator drift finger to nose with no bipass Results & Data Vital Signs (Past 12 Hours) Vital Signs Temp Pulse Pulse Resp BP Pulse Ox 12/20/18 12:00 36.9 C 124 H 20 94/63 L 97 12/20/18 10:29 98 H 12/20/18 07:09 36.6 C 56 L 17 121/71 96 12/20/18 04:00 37.1 C 98 H 17 148/89 H 98 Laboratory Results Abnormal lab results 12/19/18 12/19/18 12/19/18 Range/Units 15:14 16:32 20:25 RBC (4.7-6.1) M/uL Hct (42-52) % Davidson # (Auto) (0.11-0.59) K/uL Sodium (136-145) mmol/L Glucose (70-99) mg/dl POC Glucose 143 H 178 H 181 H (70-99) Calcium (8.5-10.1) mg/dl 12/19/18 12/20/18 12/20/18 Range/Units 23:59 03:59 06:59 RBC 4.60 L (4.7-6.1) M/uL Hct 40.1 L (42-52) % Davidson # (Auto) 0.66 H (0.11-0.59) K/uL Sodium (136-145) mmol/L Glucose (70-99) mg/dl POC Glucose 209 H 201 H (70-99) Calcium (8.5-10.1) mg/dl 12/20/18 12/20/18 12/20/18 Range/Units 06:59 07:37 11:32 RBC (4.7-6.1) M/uL Hct (42-52) % Davidson # (Auto) (0.11-0.59) K/uL Sodium 133 L (136-145) mmol/L Glucose 201 H (70-99) mg/dl POC Glucose 245 H 174 H (70-99) Calcium 8.4 L (8.5-10.1) mg/dl Diagnostic Findings TTE- EF 55-60 % no ASD
[2018-12-20] MEDS ORDERED: ATORVASTATIN 40 MG TAB PO SCH (14:00)
[2018-12-20] MEDS ORDERED: STROKE PATIENT DISCHARGE STA (15:25)
--- NOTE | 2018-12-20 16:51 | Pharmacy Report ---
Pharmacist Stroke Counseling - Date of Service December 20, 2018 - Scope: Pharmacy has been consulted to provide medication discharge counseling for this patient admitted with ischemic stroke as per the Pharmacist Discharge Counseling for Stroke Patients Protocol. - Medications on Discharge: Home Medications Medication Instructions Recorded Confirmed multivitamin 1 tab PO DAILY 12/18/18 12/18/18 New Rx's Medication Instructions Recorded aspirin [Ecotrin Low Strength] 81 mg PO QAM 30 Days #30 tab 12/20/18 atorvastatin 40 mg PO QAM 30 Days #30 tab 12/20/18 clopidogrel 75 mg PO QAM 30 Days #30 tab 12/20/18 insulin NPH and regular human 10 units SQ PM #10 ml 12/20/18 [Novolin 70/30 U-100 Insulin] insulin NPH and regular human 25 units SQ QAM #10 ml 12/20/18 [Novolin 70/30 U-100 Insulin] insulin syr/ndl U100 half shey #100 ea 12/20/18 lancets #100 ea 12/20/18 metformin 500 mg PO BID #120 tab 12/20/18 - Action: The all of the above medications have been reviewed in detail with the patient and his Sujey prior to discharge. This includes indication, common adverse reactions, drug interactions, and medication administration. Medication counseling has been employed using the teach-back method to ensure understanding. - Outcome: The patient his have demonstrated understanding of the medications. Please note, they are aware that the pharmacist will call them within 72 hours post-discharge to confirm that the appropriate medications are being taken and answer any further medication related questions the patient might have at that time. Contact information Individual to be contacted: Nigel Phone number: Best time to call: anytime on Tuesday Additional comments: - Spoke with Nigel and Sujey (his ) extensively r/e stroke medications and used the medications to prevent stroke handout - Nigel noted he sometimes gets heartburn when he eats spicy food late at night. He noted he uses generic Zantac. He denied ever using omeprazole. I counseled to continue to use generic Zantac if needed and to avoid switching to a different medication to avoid this drug interaction. - Nigel is also a newly diagnosed diabetic. I also therefore focused on his new diabetes medications as well Diabetes - I provided the Suraj handout "Giving Yourself a Shot" and reviewed this with him. I also provided a small supply of alcohol swabs to take home - Nigel noted he has already successfully given himself an insulin injection while here at [facility] - His seems more comfortable with his medications and also has demonstrated better recall of specific counseling by certified adapted physical educator prior to my conversation (example: Nigel could not describe signs/symptoms of hypoglycemia but Sujey could) - Sujey has a medication organizer she uses for herself. She noted intent to get Nigel one as well. I did provide the [facility] organizer, but it only has one row and Nigel has one BID medication (metformin) - Nigel noted he usually does not eat breakfast and instead eats brunch and dinner (and sometimes a bedtime snack). I counseled that this could be problematic with insulin 70/30 BIDM and increase risk for hypoglycemia. Nigel noted he would adjust his regimen and always eat breakfast, lunch, dinner, and a bedtime snack Thank you for allowing pharmacy to be involved in the care of this patient. Please call [phone] or [phone] with any additional questions
--- NOTE | 2018-12-20 18:07 | Discharge Summary ---
Date of Service December 20, 2018 Admission HPI Per Admitting Provider 68-year-old male who presents the ED with difficulty speaking. Patient has not been seen by a physician in several years. Patient reports that he and his were at a casino in [place] yesterday and did not arrive home until 5:00 this morning. Patient woke up around noon and at that time, he was noted to have difficulty speaking and some mild confusion. is the bedside who provides history. She reports that he knew what he wanted to say however was unable to get the words out. Patient was then brought to the ED for further evaluation. There is no associated unilateral numbness or tingling, slurred speech, facial droop. Patient denies headache and blurred vision. Over the past several months, patient has had episodes where he " collapses". Reports this was not due to loss of consciousness however his legs are simply give out from under him. Patient denies lightheadedness, dizziness, diaphoresis, syncopal events. He denies abdominal pain, nausea, vomiting, diarrhea. No other recent illnes ses, fevers, chills. He denies any urinary symptoms. Patient reports increased thirst and urination however reports this is been going on for " some time". Stroke alert was called when patient arrived to the ED however he was not felt to be a candidate for TPA secondary to timing. Head CTA shows an acute/subacute infarct in the left frontoparietal region. Neck CTA shows 95% stenosis within the left internal and external carotid arteries. Patient was given a full dose aspirin and clopidogrel 300 mg as per recommendations from [place] stroke alert. Labs also show blood sugar of 378 (no history of diabetes). Principal Diagnosis Acute CVA/left internal carotid artery stenosis Discharge Exam Constitutional WD/WN, vitals as above no acute distress Eyes PERRL, conjunctivae normal, anicteric sclerae ENMT external ear and nose normal, oropharynx normal Neck trachea midline, no thyromegaly Respiratory normal respiratory effort, lungs clear to auscultation Cardiovascular RRR, no murmur, no edema Gastrointestinal (Abdomen) normal bowel sounds, soft, nontender, no hepatosplenomegaly Musculoskeletal no cyanosis or clubbing, extremities motor strength 5/5 Skin no rashes, warm and dry Neurologic no focal motor deficits Psychiatric A+Ox3, euthymic affect Discharge Data Allergies Allergy/AdvReac Type Severity Reaction Status Date / Time No Known Allergies Allergy Verified 12/18/18 14:58 Consultations 12/18/18 15:24 ED Decision to Admit Stat 12/18/18 16:51 Consult Case Management - Discharge Planning Routine Consult Neurology Routine Consult Vascular Surgery Routine 12/19/18 11:00 Consult General Surgery Routine Ordered Studies 12/18/18 14:11 CT head/brain wo con Stat 12/18/18 14:32 CT angio head w con Stat CT angio neck with con Stat 12/18/18 16:51 MR brain wo/w con Routine 12/19/18 11:29 duplex aorta/iliacs Routine Hospital Course (1) Acute thromboembolic cerebrovascular accident (CVA): Developed acute left-sided CVA/infarction, CTA of neck shows high-grade left internal carotid stenosis: Possible source of acute thromboembolic event Patient presented with right-sided weakness expressive aphasia, neurological symptom improved since admission Dysphasia, able to ambulate independently, improvement of right upper extremity weakness Patient is continued with aspirin and Plavix High intensity statin therapy Lipitor 40 mg daily initiated Goal LDL less than 70 (fasting lipid profile shows LDL 187) Critical stenosis of left internal carotid artery noted, vascular surgery consulted, appreciate input Acute CVA , not safe to do emergent vascular procedure/left carotid endarterectomy Patient will need uninterrupted dual antiplatelet therapy for at least 2 to 3 weeks Vascular surgery follow-up scheduled next 2 weeks (2) Carotid stenosis, symptomatic, with infarction: CT of neck: 1. 95% plus stenosis/critical stenosis of the left internal and left external carotid arteries, 2. No significant stenosis of the right carotid arteries system or vertebral basilar system. Presented with acute left-sided CVA causing right-sided paresis expressive aphasia Symptoms improved, continued aspirin Plavix/statin Vascular surgery follow-up in 2 to 3 weeks for evaluation of left carotid endarterectomy (3) Carotid stenosis: - -Patient presenting from home with reports of expressive aphasia -In the ED, head CTA showing acute/subacute left frontoparietal infarction CT of neck shows critical right sided carotid stenosis -Vascular surgery consulted, appreciate input, recommend clinic follow-up in next 2 weeks for left carotid endarterctomy (4) CVA (cerebral vascular accident): Admitted with sudden onset of expressive aphasia, with right-sided weakness MRI of brain shows IMPRESSION: 1. Acute left temporoparietal infarct in the left MCA territory. The presence of T2/FLAIR hyperintense signal likely indicates an infarct at least 6-12 hours old, which is compatible with the clinical history. No hemorrhage. 2. Expansile left maxillary sinus lesion. This could be evaluated on a nonurgent outpatient basis with a CT sinus. -Neck CTA showing 95% stenosis of the left internal and external carotid arteries -TPA not indicated due to unknown last well time (patient woke up with symptoms) Patient is continued with aspirin and Plavix, given loading dose of Plavix in the ED Neurologically patient symptoms improved,-no dysphagia, no problem in articulation, weakness gradually improved on the right side, still have moderate expressive aphasia/word finding difficulty Appreciate input from neurology Out patient vascular surgery evaluation for significant left carotid artery stenosis, possible source of thromboembolic event Will need uninterrupted aspirin and Plavix treatment for at least 3 months, started with high intensity statin Lipitor 40 mg daily, fasting lipid panel shows LDL 187, goal LDL less than 70 (5) Newly diagnosed diabetes: Patient has not seen any physician for last 20 years Not on any medications -Glucose on arrival 378 Hemoglobin A1c 13.8 Was initially treated with IV insulin drip, BSG markedly improved, no evidence of DKA Appreciate input from pharmacy for glycemic management, transition made to basal Lantus and insulin sliding scale, compliance and control analyst consulted, Insulin teaching given at bedside Patient will be discharged on combination of oral meds and insulin Discharge antidiabetic regimen: Metformin 500 mg twice daily for 1 week, then increase dose to thousand milligrams twice a day if no significant GI symptoms Insulin Novolin 70/30: 25 units in a.m./10 units in p.m. Family physician follow-up therapist with [facility] physician group clinic [facility] (6) Hyperlipidemia LDL goal <70: Continue Lipitor 40 mg daily Repeat fasting lipid profile in 6 to 12 months (7) Abnormal renal function: Acute renal failure, presented with creatinine 1.5, creatinine improved to 1.1 with IV fluid possible baseline CKD stage III for underlying diabetes /hyperglycemia without any treatment Patient is encouraged to oral intake, Avoid NSAIDs (8) DVT prophylaxis: -SCDs, ambulate CODE STATUS: Full code Disposition: PT OT evaluation appreciated, does not have any significant neurological deficit, safe to return home does not need rehab Social service consulted for discharge planning For home health visiting nurse, patient and family declined, has multiple family members as nurse, assistant chief nursing officer, comfortable that family member will be able to assist in blood sugar check and medication monitoring Established with family physician: [facility] in [place] clinic follow-up arranged with vascular surgery for left carotid artery stenosis evaluation for endarterectomy Neurology follow-up in 4 to 6 weeks (9) Carotid artery stenosis: Total Time Total Time Spent Total Time Spent (In Minutes): Approximately 50 minutes Discharge Plan Discharge Items Patient Disposition: Home - Self-Care Reason For Visit: CVA Discharge Diagnosis: ACUTE LEFT SIDED CVA WITH CRITICAL LEFT CAROTID ARTERY STEN OSIS /DIABETES Discharge Goals: Decrease discomfort, Diagnostic testing and Therapeutic intervention Activity: Resume your previous activity Non-emergency contact: Primary Care Provider Call non-emergency contact if: you have any medication questions Follow-up/Referrals: Victorino Parish MD [Surgeon] - 12/27/18 10:40 am (Please, follow up at [facility] General Surgery Office with Dr. Parish on TuesdayDecember 27 at 10:40 am. *This office is located at [address] [place] [address] in [place]. If you need to change this appointment, call the office at [phone]. ) Keyonna Pickering DO [Primary Care Provider] - 12/21/18 10:30 am (Please, follow up at [facility] [place] Office with Dr. Pickering's associate, Vaishali MCNEAL, TOMORROW, December 21 at 10:30 am. *This office is located next to [facility]. If you need to change this appointment, call the office at [phone]. ) Yobany Dubois MD [Physician] - Diet: Carb Consistent or DM2 and Heart Healthy Addtl Provider Instructions: HOSPITAL FOLLOW UP AT [facility] TOMORROW 12/21/2018 @10: 30 AM ADDRESS: [address] [place] [address], [address] [place] [address] VASCULAR SURGERY FOLLOW UP WITH DR PARISH ON Tuesday12/27/18 @10:40 PM TAKE ASPIRIN /PLAVIX DAILY IN FULL STOMACH ( PREFERABLY AFTER THE BIGGEST MEAL OF THE DAY ) PLEASE NOTIFY YOU FAMILY PHYSICIAN WITH ANY EVIDENCE OF DARK/TARRY COLOR STOOL DO NOT TAKE NAPROXEN , ALEVE , IBUPROPHEN , ADVIL , MOTRIN -AVOID OVER THE COUNTER NSAID FOR PAIN , HIGH RISK FOR STOMACH ULCER AND BLEEDING WHEN TAKING WITH ASPIRIN AND PLAVIX PLEASE CHECK BLOOD SUGAR 3 TIMES DAILY BEFORE BREAKFAST ( FASTING ) BEFORE LUNCH BEFORE DINNER KEEP LOG OF THE BLOOD SUGAR READINGS AND BRING IN WITH NEXT DOCTORS VISIT YOU WILL NEED YEARLY DIABETIC EYE CHECK UP DIABETIC FOOT CHECK UP WITH EACH CLINIC VISIT HBA1C NEEDS TO BE CHECKED IN 3 MONTHS FASTING LIPID PANEL IN NEXT 6 MONTHS -GOAL LDL< 70 THEN ONCE YEARLY IF LDL REMAINS WITHIN THE GOAL Risk Factors for Stroke: You can reduce your chances of stroke by working with your medical provider to adopt a healthy lifestyle. Some specific ways to lower your chance of stroke are: * If you are a smoker, now is the time to stop smoking cigarettes * If you are diabetic, improve the control of your blood sugars * Avoid excessive amounts of alcohol * Control high blood pressure * Lose weight if you are overweight * Be sure to lead an active lifestyle * Eat a healthy diet low in salt, cholesterol and fat You should know about other risk factors for stroke that you are unable to control. These include: * Age 55 years or older * Male gender * Certain racial groups: , or / * Family History of Stroke, Mini stroke or Heart Attack * Sickle Cell Disease Follow Up: It is important for you to keep your follow up appointments with your medical provider. Who to Call and When: Medical Emergencies: Call 911 immediately if you experience any of the following warning signs and symptoms of Stroke: * Sudden numbness or weakness of the face, arm or leg, especially on one side of the body * Sudden confusion, trouble speaking or understanding * Sudden trouble seeing in one or both eyes * Sudden trouble walking, dizziness, loss of balance or coordination * Sudden severe headache with no cause Do not delay calling 911 if you experience any warning signs or symptoms of a stroke. Delay in seeking medical attention may affect what treatments can be given to you. . Prescriptions: New atorvastatin 40 mg Tablet 40 mg PO QAM 30 Days Qty: 30 RF: 3 clopidogrel 75 mg Tablet 75 mg PO QAM 30 Days Qty: 30 RF: 3 aspirin [Ecotrin Low Strength] 81 mg Tablet,Delayed Release (Dr/Ec) 81 mg PO QAM 30 Days Qty: 30 RF: 3 metformin 500 mg tablet 500 mg PO BID Qty: 120 RF: 3 Novolin 70/30 U-100 Insulin 100 unit/mL (70-30) suspension 25 units SQ QAM Qty: 10 RF: 3 Novolin 70/30 U-100 Insulin 100 unit/mL (70-30) suspension 10 units SQ PM Qty: 10 RF: 0 insulin syr/ndl U100 half shey 0.5 mL 31 gauge x 15/64" syringe .ROUTE .MEDSUPPLY Qty: 100 RF: 3 lancets misc .ROUTE .MEDSUPPLY Qty: 100 RF: 0 Continued multivitamin Tablet 1 tab PO DAILY RF: 0 Discontinued aspirin 325 mg Tablet,Delayed Release (Dr/Ec) 325 mg PO DAILY RF: 0 naproxen sodium 220 mg Tablet 220 - 440 mg PO DIRECTED PRN (Reason: Pain) RF: 0 Stand-Alone Forms: Medications to Prevent Stroke, [facility] Discharge Orders: Discharge Order (Routine); Ordered 12/20/18 Ordered By: Anjali Song Admission Data Admit Date/Time: 12/18/18 16:10 Attending Provider: Anjali Song Admit Provider: Nehemias López Primary Care Provider: Keyonna Pickering Other Providers: Nehemias López ; Yobany Dubois ; Seferino Rivers ; Felix Llamas ; Victorino Parish Service: Telemetry Other Interventions: Discharge Summary Assessment (RN) Last Done: 12/20/18 14:36 DC Date/Time DO NOT enter until pt leaves facility: 12/20/18 17:00
[2018-12-21] MEDS ORDERED: INSULIN GLARGINE SOLOSTAR 100 UNITS/ML 3 ML PEN SC SCH (09:00)
--- NOTE | 2018-12-22 14:10 | Pharmacy Report ---
Pharmacist Post D/C Phone Note - Phone Note: Date of phone call: December 22, 2018. Individual with whom pharmacist spoke to: Nigel and , Sujey The following questions were reviewed during the phone call with responses listed below each: Can you tell me the medications that you are currently taking as well as when and how you take each medication? -See Table Below; note: patient saw Vaishali Ovalle yesterday and was started on lisinopril 5 mg daily When have you missed any doses of your medications? - Missed 1 day of new medications since he was waiting to get them filled What side effects are you having from your medications, specifically, the new medications you were started on? - Some diarrhea but seems to have improved. I noted that this could be from the metformin so I suggested to take this with meals What questions do you have about your medications? - None What problems are you having obtaining your medications? - No further issues since picking them up When is your next appointment with your primary care doctor? - Patient saw Vaishali Ovalle w/ [facility] yesterday. He has f/u with vascular surgery next week. Additional comments: - reports they are doing really well since being discharged. Her son's girlfriend is a nurse and has been able to help with his medications. Insulin injections are going well. Sujey reports high BSGs (200s) yesterday but fasting was 122 mg/dL this AM. I told her to continue with current regimen and make sure to call PCP if BSGs start to go too low. This is a great fasting BSG s/p discharge. Patient not experiencing any bruising/bleeding or muscle pains. As per the Pharmacist Discharge Counseling for Stroke Patients Protocol, this phone call has been completed within 72 hours of discharge. Thank you for allowing us to be involved in the care of this patient. - Home Medications: Home Medications Medication Instructions Recorded Confirmed multivitamin 1 tab PO DAILY 12/18/18 12/18/18 lisinopril 5 mg PO DAILY 12/22/18 12/22/18 New Rx's Medication Instructions Recorded aspirin [Ecotrin Low Strength] 81 mg PO QAM 30 Days #30 tab 12/20/18 atorvastatin 40 mg PO QAM 30 Days #30 tab 12/20/18 clopidogrel 75 mg PO QAM 30 Days #30 tab 12/20/18 insulin NPH and regular human 10 units SQ PM #10 ml 12/20/18 [Novolin 70/30 U-100 Insulin] insulin NPH and regular human 25 units SQ QAM #10 ml 12/20/18 [Novolin 70/30 U-100 Insulin] insulin syr/ndl U100 half shey #100 ea 12/20/18 lancets #100 ea 12/20/18 metformin 500 mg PO BID #120 tab 12/20/18
== END 2018-12-20 17:00 | disposition home or self-care (01) | DRG 65 ==
LOC: ED 14:03 → 2S 16:10 → SUATTDRO 16:10 → 2S 16:29
DX: Z82.49 Family history of ischemic heart disease and other diseases of the circulatory system; R29.702 NIHSS score 2; R00.0 Tachycardia, unspecified; I63.032 Cerebral infarction due to thrombosis of left carotid artery; Z79.82 Long term (current) use of aspirin; G81.91 Hemiplegia, unspecified affecting right dominant side; I12.9 Hypertensive chronic kidney disease with stage 1 through stage 4 chronic kidney disease, or unspecified chronic kidney disease; I63.132 Cerebral infarction due to embolism of left carotid artery; E78.5 Hyperlipidemia, unspecified; E11.22 Type 2 diabetes mellitus with diabetic chronic kidney disease; Z82.3 Family history of stroke; E11.65 Type 2 diabetes mellitus with hyperglycemia; Z83.3 Family history of diabetes mellitus; R47.01 Aphasia; N17.9 Acute kidney failure, unspecified; N18.3 Chronic kidney disease, stage 3 (moderate); R13.10 Dysphagia, unspecified

== ENCOUNTER 2019-01-02 05:09 | Inpatient (IN) ==
--- NOTE | 2018-12-28 11:19 | Anesthesiology Consultation ---
Date of Service December 28, 2018 Assessment & Plan (1) Encounter for pre-operative examination: CHECK BSG STAT AM DOS Chart Review Chart Review: Acceptable Risk for Surgery and Patient NOT seen in Pre Admission Testing History Surgery Operation Date: 01/02/19 08:05 Proposed Procedures p Left Carotid Endarterectomy - Victorino High MD Height/Weight Height: 5 ft 7.25 in Weight: 72.575 kg Allergies Allergy/AdvReac Type Severity Reaction Status Date / Time No Known Allergies Allergy Verified 12/28/18 10:27 Medications Home Medications Medication Instructions Recorded Confirmed Last Taken multivitamin 1 tab PO DAILY 12/18/18 12/28/18 12/17/18 aspirin [Ecotrin Low Strength] 81 mg PO QAM 30 Days #30 tab 12/20/18 12/28/18 Unknown atorvastatin 40 mg PO QAM 30 Days #30 tab 12/20/18 12/28/18 Unknown clopidogrel 75 mg PO QAM 30 Days #30 tab 12/20/18 12/28/18 Unknown insulin NPH and regular human 10 units SQ PM #10 ml 12/20/18 12/28/18 Unknown [Novolin 70/30 U-100 Insulin] insulin NPH and regular human 25 units SQ QAM #10 ml 12/20/18 12/28/18 Unknown [Novolin 70/30 U-100 Insulin] metformin 500 mg PO BID #120 tab 12/20/18 12/28/18 Unknown lisinopril 5 mg PO QAM 12/22/18 12/28/18 Unknown Past Medical History Medical History Wrist fracture (Chronic) s/p repair Carotid artery stenosis Diabetes mellitus, type 2 IDDM Hyperlipidemia Hypertension Kidney stones H/O Stroke 12/18/2018. OCCASIONALLY WILL HAVE TO SEARCH FOR A WORD, BUT OTHERWISE NO DEFICITS. ON PLAVIX. Past Family History Family History Father Abdominal aortic aneurysm Mother Stroke Fatal at age 88 Brother Diabetes Past Surgical History Surgical History No history of previous surgery Social History Smoking Status: Never smoker Do You Dip or Chew Tobacco: No Hx Alcohol Use: No Hx Substance Use: No substance use type: does not use Testing Laboratory Results 12/20/18 WBC: 8.30 H/H: 14.1/40.1 PLATELETS: 224 SODIUM: 133 POTASSIUM: 4.0 CHLORIDE: 100 CO2: 24 BUN: 13 CREATININE: 0.98 GLUCOSE: 201 A1C: 14.6% PT: PTT: INR: UA: TYPE AND SCREEN: Electrocardiogram Date: 12/18/18 Findings: + ST @ (121) *Poor data quality, interpretation may be adversely affected. Low voltage QRS. Chest X-Ray Date: 12/18/18 Findings: + NAD Echocardiogram Date: 12/19/18 EF: 55-60% There is mild concentric LVH. Aortic valve sclerosis mild, without significant aortic valvular stenosis. There is mild MR. Injection of contrast documented no intra-atrial shunt. Other Testing Head CT 12/18/18 1. Acute/subacute infarct left superior temporal parietal lobe 2. No acute intracranial hemorrhage. 3. Expansile polypoid change superior left maxillary sinus. Neck CTA 12/18/18 1. 95% plus stenosis/critical stenosis of the left internal and left external carotid arteries. 2. No significant stenosis of the right carotid system or vertebral basilar system.
[2019-01-02] MEDS ORDERED: LR 15ML/HR IV SCH (06:00)
--- NOTE | 2019-01-02 06:36 | History & Physical Bridge Note ---
Date of Service January 02, 2019 History & Physical Bridge Note I have examined the patient, reviewed the History & Physical and in the interval since the performance of the History & Physical I have noted the following changes of clinical significance: no changes noted pt marked all questions answered family at bedside
[2019-01-02] MEDS ORDERED: fentaNYL citrate 100 MCG/2 ML VIAL ONE ×2 (07:18→11:11)
[2019-01-02] MEDS ORDERED: NITROGLYCERIN 5 MG/ML 10 ML VIAL ONE (07:20)
[2019-01-02] MEDS ORDERED: LABETALOL HCL IV 5 MG/ML 20ML IV PRN (07:54)
[2019-01-02] MEDS ORDERED: PROMETHAZINE HCL 6.25 MG in SODIUM CHLORIDE 0.9% 50 ML IV PRN (07:54)
[2019-01-02] MEDS ORDERED: ONDANSETRON INJ 2 MG/ML 2 ML VIAL IV PRN ×2 (07:54→11:58)
[2019-01-02] MEDS ORDERED: ATROPINE SULFATE 0.1 MG/ML 10ML SYR IV PRN (07:54)
[2019-01-02] MEDS ORDERED: KETOROLAC 30 MG/ML VIAL IV PRN (07:54)
[2019-01-02] MEDS ORDERED: HYDROmorphone INJ 1 MG/ML SYRINGE IV PRN (07:54)
[2019-01-02] MEDS ORDERED: HEPARIN (PORCINE) 1000 UNIT/ML 10 ML (CATH LAB USE ONLY) ONE (08:08)
[2019-01-02] MEDS ORDERED: LIDOCAINE/EPINEPHRINE 1% 20 ML VIAL ONE (08:08)
[2019-01-02] MEDS ORDERED: BACITRACIN INJ 50,000 UNIT VIAL ONE (08:08)
[2019-01-02] MEDS ORDERED: CEFAZOLIN 2000MG 2,000 MG/15 ML SYR IV ONE (08:57)
[2019-01-02] MEDS ORDERED: SURGICEL ABSORB HEMOSTAT 2IN X 14IN TOP ONE (10:00)
[2019-01-02] MEDS ORDERED: PROPOFOL IV EMULSION 10 MG/ML 20 ML VIAL IV ONE (10:34)
[2019-01-02] MEDS ORDERED: LIDOCAINE HCL 2% 2 ML VIAL/AMP(20MG/ML) INFIL ONE (10:34)
[2019-01-02] MEDS ORDERED: ROCURONIUM BROMIDE 10 MG/ML 5 ML VIAL ONE (10:34)
[2019-01-02] MEDS ORDERED: HEPARIN SOD (PORCINE) 1000 UNIT/ML 10 ML VIAL ONE (10:35)
[2019-01-02] MEDS ORDERED: CEFAZOLIN 250 MG/ML 1 GM VIAL ONE (10:35)
[2019-01-02] MEDS ORDERED: PROTAMINE SULFATE 10 MG/ML 5 ML VIAL ONE (10:35)
[2019-01-02] MEDS ORDERED: ONDANSETRON INJ 2 MG/ML 2 ML VIAL ONE (10:35)
[2019-01-02] MEDS ORDERED: LABETALOL HCL IV 5 MG/ML 20ML IV ONE (10:35)
[2019-01-02] MEDS ORDERED: PHENYLEPHRINE HCL 10 MG/ML VIAL ONE (10:35)
--- NOTE | 2019-01-02 10:50 | Post Operative Brief Note ---
Immediate Post Op Note v1 Date of Surgery January 02, 2019 Pre & Post Diagnosis Operation Date: 01/02/19 07:00 Pre-Op Diagnosis: Left Carotid Stenosis Post-Op Diagnosis: Left Carotid Stenosis Procedure Operation Date: 01/02/19 07:00 Actual Procedures p Left Carotid Endarterectomy with Bovine Patch(Left) - Victorino High MD Surgeon Victorino High MD Folding Machine Feeder b debora villalpando Estimated Blood Loss 200 Findings Consistent with Post-Op Diagnosis Drains Regina Drain
--- NOTE | 2019-01-02 11:17 | Operative Report ---
Post Operative Report Pre & Post Diagnosis Operation Date: 01/02/19 07:00 Pre-Op Diagnosis: Left Carotid Stenosis Post-Op Diagnosis: Left Carotid Stenosis Procedure Operation Date: 01/02/19 07:00 Actual Procedures p Left Carotid Endarterectomy with Bovine Patch(Left) - Victorino High MD Patient was brought into the operating room theater supine position general en dotracheal anesthesia roll been placed underneath the shoulders left neck and chest was prepped Betadine solution properly draped systemic antibiotics given timeout was had patient identified 1% Xylocaine with Afrin was used to infiltrate anterior to the left sternocleido muscle approximately 3 inches incision was made deepened subcutaneous tissue retracting the muscle laterally dissected down the neurovascular bundle with chemical in the common carotid which had significant disease just by palpation and a smaller than normal we encircled with vessel loop loosely dissection was then carried out cephalad and identified the superior thyroid and encircled Joseline tied with 2-0 silk the external carotid with a vessel loop we then continued on to identify the nerve doubly elevated on the operative field with a vessel loop the internal carotid at its takeoff a significant dissection just to free it up but once we were about an inch from the bifurcation of the artery which was quite small and clinically by her dissection did not have a significant amount of atherosclerosis the suspensory ligament was then divided. Systemic heparinization was given with 8000 units of heparin while we waited for this we prepared the shunt in case we needed it and also a bovine graft was opened and appropriately cut to be used as a patch once this had been performed we then went on and after 5 minutes of heparinization effect we clamped the internal carotid with a bulldog clamp in the external and the common arteriotomy in the common carotid extended to a really hard plaque towards the internal car otid which was nearly totally close off this was hemorrhagic in the area then we went about an inch from the takeoff of the internal carotid where it seemed to taper off nicely as far as any disease or dissection was carried out as far as the endarterectomy stop starting at the common carotid and the circular fibers about an inch from the bifurcation but then we came back further down in the common carotid since the patient has significant disease to the point that we had good inflow. The endarterectomy was called and continued up towards the external carotid which we did an inversion endarterectomy then on the internal carotid where we were able to free it out very nicely and intima remaining was adherent this point I took off the bulldog clamp and patient had excellent backbleeding almost pulsatile nature therefore I elected not to shut him we flushed the common external carotid checked the endarterectomy site no debris was appreciated we then brought on the field the patch and all made with 6-0 Prolene circumferentially prior to completing the patch we were able then to place a #4 bakes dilator into the internal carotid area or backbleeding was excellent and we were able to control it with a DeBakey forcep we took the external carotid clamp off and then the common carotid flushed at the endarterectomy site suction it out and tied down the patch once this been performed we took the clamp off the external carotid there was some bleeding appreciated right at the toe of the patch were we controlled the multiple size with 7-0 and 6-0 Prolene I think this was due to the fact that when initially went in the artery itself was about 3 to 4 mm once we are able to do an endarterectomy site the arm itself was very thin-walled and actually may have put a pressure on the sutures we placed a lot of at 706 0 sutures to the point that we had some significant and good hemostasis we also left a piece of Surgicel in the area. We had reversed the heparin with 40 mg of protamine first and another 40. The patient was on Plavix and aspirin which we had some generalized oozing. This point I elected to drain with quarter inch Bob coming between 2 heads of sternocleido and placed along the endarterectomy site suture in the skin with 2-0 silk sutures the wound was closed with multiple layer 302 0 Dexon abran for skin edges dressing was applied procedure was tolerated well by the patient estimated blood loss mostly the flushing and some oozing but 200 cc at the end of procedure the patient was extubated neurologically intact and responding appropriately. AddendumB Aria DAILEY was present throughout the procedure doing retraction exposure and closure. Surgeon Victorino High MD Advisory Software Engineer gabriella dailey Estimated Blood Loss 200 Findings Consistent with Post-Op Diagnosis Specimens plaque Description of Procedure merda I attest to the content of the Intraoperative Record and any orders documented therein. Any exceptions are noted below.
[2019-01-02] MEDS ORDERED: OXYCODONE/ACETAMINOPHEN 5mg/325mg TAB PO PRN (11:58)
[2019-01-02] MEDS ORDERED: MoRPHine SULFATE 4 MG/ML 1 ML CARP\\VIAL IV PRN (11:58)
[2019-01-02] MEDS: LACTATED RINGER'S 1,000 ML IV SCH (12:10)
[2019-01-02] MEDS ORDERED: PHARMACY GLYCEMIC MGMT CONSULT SCH (12:10)
--- NOTE | 2019-01-02 12:10 | Anesthesiology Progress Note ---
Date of Service January 02, 2019 Anesthesia Post Procedure Vital Signs Vital Signs: Temp Pulse Pulse Resp BP BP Pulse Ox 01/02/19 11:40 36.6 C 91 H 15 147/57 H 146/78 H 98 01/02/19 11:30 89 16 138/55 L 152/86 H 98 01/02/19 11:20 89 20 136/55 L 147/85 H 99 01/02/19 11:10 89 10 L 136/58 L 146/83 H 99 01/02/19 11:04 36.6 C 86 15 133/74 94 01/02/19 05:33 36.5 C 118 H 20 166/90 H 97 Transfer of Care Handoff Completed per policy Notes Mental Status: alert / awake / arousable Patient Amnestic to Procedure: Yes Nausea / Vomiting: adequately controlled Pain: adequately controlled Airway Patency, RR, SpO2: stable & adequate BP & HR: stable & adequate Hydration State: stable & adequate Anesthetic Complications: no major complications apparent
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
[2019-01-02] MEDS: NITROGLYCERIN/D5W 100MCG/ML 250 ML IV SCH (13:02)
[2019-01-02 13:04] LABS: Hematocrit (blood only) 35.5 % (42-52); Hemoglobin 12.1 g/dL (14.0-18.0); Mean Corpuscular Hgb Conc 34.1 g/dL (32-36); Mean Corpuscular Volume 87.7 fL (80-100); Mean Platelet Volume 9.2 fL (7.4-10.4); Platelet Count 223 K/uL (130-400); RDW Coefficient of Variation 12.7 % (11.5-14.5); Red Blood Count 4.05 M/uL (4.7-6.1); White Blood Count 9.83 K/uL (4.8-10.8)
--- NOTE | 2019-01-02 13:09 | Pharmacy Report ---
Pharmacy Glycemic Short Note 2 - Date of Service January 02, 2019 - Glycemic Short BSG Results (Last 24 hours): 01/02/19 01/02/19 01/02/19 05:55 09:40 11:12 POC Glucose 177 H 139 H 169 H OUTPATIENT ANTIDIABETIC REGIMEN: * 70/30 insulin 25 units w/ breakfast + 10 units w/ dinner * Metformin 1gm PO BID * A1c = 14.6% 12/18/18 ASSESSMENT: * Type 2 diabetic admitted to ICU this afternoon following L CEA * He states he began insulin ~ 2 weeks ago and confirmed the above regimen with me. His last dose of insulin was this AM prior to arrival (10 units). Per patient he has not experienced hypoglycemia with the above regimen. * BSGs are well controlled thus far. * It does not appear that he received steroids in the OR today * Out-pt regimen is equivalent to ~0.5units/kg/day, a reasonable dosage to continue while admitted. Will use Lantus/Novolog instead of 70/30 insulin given the difficulty titrating 70/30 regimens and the higher risk of hypoglycemia with changing nutritional status. PLAN FOR INPATIENT GLYCEMIC CONTROL: * Hold outpatient oral diabetes medications (metformin, 70/30 insulin) * Basal insulin * Lantus 9 units SQ BID * Bolus insulin * NovoLog per scale ACHS or Q6hrs while NPO * Goal Range: Low 110 mg/dL - High 140 mg/dL * Correction Factor: 35 mg/dL/unit * Nutritional / Prandial insulin per carb ratio of 1 unit per 12 grams CHO consumed PLAN FOR DISCHARGE: * may resume home regimen as this therapy is new for him and I believe it is too soon to adjust without access to his outpt BSGs
[2019-01-02 13:17] LABS: INR 1.2 (0.9-1.1); Partial Thromboplastin Ratio 0.9; Partial Thromboplastin Time 25.4 Seconds (21.0-31.0); Prothrombin Time 11.8 Seconds (9.0-12.0)
[2019-01-02] MEDS ORDERED: ACETAMINOPHEN 325 MG TAB ONE (14:18)
[2019-01-02] MEDS ORDERED: ACETAMINOPHEN 325 MG TAB PO STA (14:21)
[2019-01-02] MEDS: LABETALOL HCL IV 5 MG/ML 20ML IV PRN ×2 (14:34→23:29)
[2019-01-02] MEDS ORDERED: INSULIN GLARGINE SOLOSTAR 100 UNITS/ML 3 ML PEN SC SCH (16:30)
[2019-01-02] MEDS: INSULIN ASPART 100 UNITS/ML 3 ML PEN SC SCH ×2 (16:49→21:23)
[2019-01-02] MEDS: HEPARIN SOD 5,000 UNIT/0.5 ML VIAL SQ SCH (21:21)
[2019-01-03] MEDS: LABETALOL HCL IV 5 MG/ML 20ML IV PRN ×2 (01:37→06:39)
[2019-01-03] MEDS: LACTATED RINGER'S 1,000 ML IV SCH (01:37)
[2019-01-03 05:23] LABS: Basophils # (auto) 0.02 K/uL (0-0.2); Basophils % (auto) 0.2 %; Eosinophils # (auto) 0.16 K/uL (0-0.5); Eosinophils % (auto) 1.7 %; Hemoglobin 11.6 g/dL (14.0-18.0); Immature Granulocytes # (auto) 0.02 K/uL (0.00-0.02); Immature Granulocytes % (auto) 0.2 %; Lymphocytes # (auto) 2.24 K/uL (1.2-3.4); Lymphocytes % (auto) 23.6 %; Mean Corpuscular Hgb Conc 35.2 g/dL (32-36); Mean Corpuscular Volume 86.4 fL (80-100); Mean Platelet Volume 9.4 fL (7.4-10.4); Monocytes # (auto) 0.78 K/uL (0.11-0.59); Monocytes % (auto) 8.2 %; Neutrophils # (auto) 6.27 K/uL (1.4-6.5); Neutrophils % (auto) 66.1 %; Platelet Count 260 K/uL (130-400); RDW Coefficient of Variation 12.7 % (11.5-14.5); RDW Standard Deviation 40.8 fL (36.4-46.3); Red Blood Count 3.82 M/uL (4.7-6.1); White Blood Count 9.49 K/uL (4.8-10.8)
[2019-01-03 05:53] LABS: Alanine Aminotransferase 16 U/L (12-78); Albumin Level 2.6 gm/dl (3.4-5.0); Alkaline Phosphatase 113 U/L (45-117); Aspartate Aminotransferase 14 U/L (15-37); BUN Creatinine Ratio 11.2 (10-20); Bilirubin Direct < 0.1 mg/dl (0-0.2); Bilirubin,Total 0.4 mg/dl (0.2-1); Blood Urea Nitrogen 11 mg/dl (7-18); Carbon Dioxide 26 mmol/L (21-32); Chloride 103 mmol/L (98-107); Creatinine Clr Calc Pharmacy 69.4 ml/min; Est GFR (African American) 93.6; Est GFR (Non-African American) 80.8; Glucose 216 mg/dl (70-99); LDL Cholesterol Direct 49 mg/dl; Magnesium 1.2 mg/dl (1.8-2.4); Potassium 4.1 mmol/L (3.5-5.1); Sodium 136 mmol/L (136-145); Total Protein 6.5 gm/dl (6.4-8.2)
[2019-01-03] MEDS: HEPARIN SOD 5,000 UNIT/0.5 ML VIAL SQ SCH (07:32)
[2019-01-03] MEDS: INSULIN GLARGINE SOLOSTAR 100 UNITS/ML 3 ML PEN SC ONE ×2 (07:33→11:09)
[2019-01-03] MEDS: INSULIN ASPART 100 UNITS/ML 3 ML PEN SC SCH ×2 (07:35→11:30)
--- NOTE | 2019-01-03 07:36 | Surgery Progress Note ---
Date of Service January 03, 2019 Assessment & Plan (1) Carotid artery stenosis: POD 1 left CEA khushboo removed BP 150s, HR 100 will recheck later this morning Subjective no complaints, tolerating diet, had Percocet last night Physical Exam Neck: incision dry, some dried bloody drainage from khushboo Neurologic: PERRL, EOMI, accommodation nl, no face palsy, no dysarthria no focal motor deficits Results & Data Vital Signs (Past 12 Hours) Vital Signs Temp Pulse Resp BP Pulse Ox 01/03/19 07:01 104 H 16 155/88 H 97 01/03/19 07:00 104 H 17 95 01/03/19 06:38 110 H 13 167/96 H 97 01/03/19 06:01 109 H 19 153/81 H 96 01/03/19 06:00 109 H 19 95 01/03/19 05:02 122 H 28 H 95 01/03/19 05:00 118 H 97 01/03/19 04:31 109 H 20 155/75 H 96 01/03/19 04:01 108 H 15 151/75 H 97 01/03/19 04:00 108 H 22 94 01/03/19 03:57 37.3 C 01/03/19 03:01 108 H 15 150/86 H 98 01/03/19 03:00 109 H 21 97 01/03/19 02:02 118 H 20 01/03/19 02:01 119 H 25 H 155/110 H 01/03/19 01:01 108 H 19 155/78 H 96 01/03/19 00:01 105 H 22 131/71 97 01/03/19 00:00 37.5 C 01/02/19 23:23 112 H 19 158/83 H 97 01/02/19 22:30 108 H 18 96 01/02/19 22:01 105 H 20 147/74 H 97 01/02/19 22:00 106 H 21 96 01/02/19 21:30 108 H 17 96 01/02/19 21:01 107 H 16 142/75 H 96 01/02/19 21:00 107 H 19 96 01/02/19 20:30 109 H 14 97 01/02/19 20:01 115 H 20 169/87 H 98 01/02/19 20:00 36.8 C 119 H 22 98 (1) Carotid artery stenosis Laterality: left Qualified Code(s): I65.22 - Occlusion and stenosis of left carotid artery
[2019-01-03] MEDS ORDERED: PHARMACY GLYCEMIC MGMT CONSULT STA (08:22)
[2019-01-03] MEDS ORDERED: INSULIN HUMAN REGULAR PER UNIT 5 UNITS in SYRINGE 0 ML IV SCH (08:30)
[2019-01-03] MEDS ORDERED: ATORVASTATIN 40 MG TAB PO SCH (09:00)
[2019-01-03] MEDS ORDERED: LISINOPRIL 5 MG TAB PO SCH (09:00)
[2019-01-03] MEDS ORDERED: ASPIRIN 81 MG ECTAB PO SCH (09:00)
[2019-01-03] MEDS ORDERED: METOPROLOL TARTRATE 25 MG TAB PO SCH (09:00)
[2019-01-03] MEDS ORDERED: CLOPIDOGREL BISULFATE 75 MG TAB PO SCH (09:00)
[2019-01-03] MEDS: MAGNESIUM SULFATE / D5W 1 GM/100 ML BAG IV SCH ×4 (09:06→12:24)
--- NOTE | 2019-01-03 10:29 | Pharmacy Report ---
Pharmacy Glycemic Short Note 2 - Date of Service January 03, 2019 - Glycemic Short BSG Results (Last 24 hours): 01/02/19 01/02/19 01/02/19 11:12 16:13 21:20 Glucose POC Glucose 169 H 228 H 201 H 01/03/19 01/03/19 01/03/19 04:51 06:44 07:28 Glucose 216 H POC Glucose 251 H 228 H 01/03/19 08:25 Glucose POC Glucose 279 H OUTPATIENT ANTIDIABETIC REGIMEN: * 70/30 insulin 25 units w/ breakfast + 10 units w/ dinner * Metformin 1gm PO BID * A1c = 14.6% 12/18/18 ASSESSMENT: 01/03 * Glycemic control has deteriorated over last 24 hrs * All BSGs greater than 200 since 1630 yesterday despite current insulin orders * Per ICU protocol, pt would typically be managed with IV insulin infusion at this level of hyperglycemia. This was discussed on multi-disciplinary rounds however Foam Rubber Mixer has opted to continue SQ treatment as pt ready to transfer out of ICU and possibly to home soon depending on Surgery's assessment * Will increase all insuln doses this AM. IV insulin bolus therapy will be used in addition to SQ to quickly obtain control. 01/02 * Type 2 diabetic admitted to ICU this afternoon following L CEA * He states he began insulin ~ 2 weeks ago and confirmed the above regimen with me. His last dose of insulin was this AM prior to arrival (10 units). Per patient he has not experienced hypoglycemia with the above regimen. * BSGs are well controlled thus far. * It does not appear that he received steroids in the OR today * Out-pt regimen is equivalent to ~0.5units/kg/day, a reasonable dosage to continue while admitted. Will use Lantus/Novolog instead of 70/30 insulin given the difficulty titrating 70/30 regimens and the higher risk of hypoglycemia with changing nutritional status. PLAN FOR INPATIENT GLYCEMIC CONTROL: * Hold outpatient oral diabetes medications (metformin, 70/30 insulin) * Basal insulin (increased dose) * Lantus 15 units SQ x 1 this AM, then 12 units BID * IV Regular insuiln 5 units SQ x 1 this AM in addition to SQ regimen * Bolus insulin (increased dose) * NovoLog per scale ACHS and at 0000 + 0400 * Goal Range: Low 110 mg/dL - High 140 mg/dL * Correction Factor: 30 mg/dL/unit * Nutritional / Prandial insulin per carb ratio of 1 unit per 10 grams CHO consumed PLAN FOR DISCHARGE: * may resume home regimen as this therapy is new for him and I believe it is too soon to adjust without access to his outpt BSGs
[2019-01-03] MEDS: NITROGLYCERIN/D5W 100MCG/ML 250 ML IV SCH (13:09)
[2019-01-03] MEDS ORDERED: INSULIN HUMAN REGULAR PER UNIT 5 UNITS in SYRINGE 4.95 ML IV SCH (13:15)
--- NOTE | 2019-01-03 13:40 | Critical Care Progress Note ---
Date of Service January 03, 2019 Assessment & Plan (1) DVT prophylaxis: SC heparin 5000 units Q12 (2) Hyperlipidemia LDL goal <70: ON atorvastatin 40 mg daily PO (3) Acute thromboembolic cerebrovascular accident (CVA): He is recovering nicely with plavix and asa continued (4) Admitted to intensive care unit: yo male patient with comorbidities of HTN DM type 2 hyperlipidemia and has not been seen by a PCP for a long time. Patient admitted recently with left thromboembolic frontoparietal ischemic stroke and found to have 95% occlusion of L ICA. Admitted today for L CEA with Bovine patch for monitoring and managenment in MICU CVS lisinopril 5 mg standing order daily PO atorvastatin 40 mg daily Respiratory patient has no smoking history encourage incentive spirometry Renal Monitor UO and maintain >0.5 ml/Kg BW-hr FU Lytes and repleted MG roday DVT prophylaxis SC heparin ID no foci of infection perioperative antibiotics given in the OR lines and tubes A line and will remove within 24 hours if stable No bernstein PIV for access CC time spent managing him in MICU is 40 min today Subjective Patient is stable. Slight left tongue deviation was noted and surgery are aware of it. Related to traction during surgery and would improve with time. Patient offers no complaints. Mg repleted and he is being DC home Physical Exam Constitutional: WD/WN, vitals as above Eyes: PERRL, conjunctivae normal, anicteric sclerae Neck: trachea midline, no thyromegaly Respiratory: normal respiratory effort, lungs clear to auscultation Cardiovascular: RRR, no murmur, no edema Gastrointestinal (Abdomen): normal bowel sounds, soft, nontender, no hepatosplenomegaly Musculoskeletal: no cyanosis or clubbing, extremities motor strength 5/5 Skin: no rashes, warm and dry Results & Data Vital Signs (Past 12 Hours) Vital Signs Temp Pulse Resp BP Pulse Ox 01/03/19 09:09 118 H 19 137/74 01/03/19 09:05 122 H 19 01/03/19 08:01 114 H 17 136/80 97 01/03/19 08:00 37.7 C H 112 H 18 96 01/03/19 07:02 103 H 16 97 01/03/19 07:01 104 H 16 155/88 H 97 01/03/19 07:00 104 H 17 95 01/03/19 06:38 110 H 13 167/96 H 97 05/29/19 06:01 109 H 19 153/81 H 96 01/03/19 06:00 109 H 19 95 01/03/19 05:02 122 H 28 H 95 01/03/19 05:00 118 H 97 01/03/19 04:31 109 H 20 155/75 H 96 01/03/19 04:01 108 H 15 151/75 H 97 01/03/19 04:00 108 H 22 94 01/03/19 03:57 37.3 C 01/03/19 03:01 108 H 15 150/86 H 98 01/03/19 03:00 109 H 21 97 01/03/19 02:02 118 H 20 01/03/19 02:01 119 H 25 H 155/110 H
[2019-01-03] MEDS ORDERED: INSULIN GLARGINE SOLOSTAR 100 UNITS/ML 3 ML PEN SC SCH (21:00)
[2019-01-04] MEDS ORDERED: INSULIN ASPART 100 UNITS/ML 3 ML PEN SC SCH
--- NOTE | 2019-01-05 01:00 | Discharge Summary ---
DATE OF ADMISSION: 01/02/2019 DATE OF DISCHARGE: 01/03/2019 PRIMARY DISCHARGE DIAGNOSES: 1. Left carotid artery stenosis. 2. Recent cerebrovascular accident. 3. Hypertension. 4. Type 2 diabetes. PROCEDURE PERFORMED: Left carotid endarterectomy with bovine patch. CONSULTATIONS: [facility] [place] financial services internship to assist in postoperative management. HOSPITAL COURSE: The patient is a 68-year-old male with recent CVA, now taken to the operating room for left carotid endarterectomy. The procedure was well tolerated. He was transferred to ICU for routine monitoring. A-line was continued overnight. His blood pressure was somewhat labile during the procedure, but more stable afterwards. He was remained somewhat tachycardic overnight. He was started on metoprolol 12.5 mg in the morning postoperative day 1. Later in the afternoon, his blood pressure was 139/70 and heart rate had improved. He was tolerating diet. Bob drain was removed from his incision. His incision was clean and dry. He was stable for discharge home. DISCHARGE INSTRUCTIONS: Discharge home. Follow up with Dr. High in 1 week. Follow up with his PCP in 3-5 days for blood pressure check after starting metoprolol. DISCHARGE MEDICATIONS: Metoprolol tartrate 12.5 mg p.o. b.i.d., Percocet 1-2 tablets every 4 hours as needed. Continue his home medications: Aspirin 81 mg daily, Plavix 75 mg daily, atorvastatin 40 mg daily, lisinopril 5 mg daily, metformin 1000 mg b.i.d., daily multivitamin, Novolin 70/30, 25 units in the morning and 10 units in the evening. [facility]
== END 2019-01-03 15:52 | disposition home or self-care (01) | DRG 38 ==
LOC: ASU 05:09 → 1E 11:15